=== PATIENT | male | born 1950 | race Caucasian/White ===

== ENCOUNTER 2016-08-19 11:16 | Inpatient (IN) | payer MEDICARE ==
[~2016-08-19] VITALS: Ht 170.2 cm; Wt 74.0 kg
[2016-08-19] VITALS (7 sets, daily range): BP systolic 119–144; BP diastolic 71–84; PULSE 72–109; RESP 16–21; O2SAT 93–98
--- NOTE | 2016-08-19 11:32 | ED.REPORT ---
HPI-Altered Mental Status Date of Service Aug 19, 2016 ED Provider: Reid Ayoub MD Pt is a 66 year old male with a hx of alcohol abuse presenting to the ED via EMS due to confusion and decreased level of consciousness. He is not oriented to place or date. He was found unconscious in his neighbor's yard and was acting strange the last couple days. His neighbor reports that he has been speaking gibberish for the past 3 days, and was acting things out in his front yard. He is normally totally oriented and neurologically intact at baseline. She has been unable to understand what he has been saying for the past 3 days, and has never seen his like this before. She reports that he drinks a lot of alcohol but she is not sure how much. The pt's 1 year ago and now lives alone. His neighbor is unsure what his medications are. Nursing Notes Stated Complaint: DECREASED RESPONSIVENESS Chief Complaint: General Complaint Nursing Notes Reviewed: Yes Allergies: Coded Allergies: No Known Allergies (Unverified , 08/19/16) General Time Seen by MD: 11:29 Chief Complaint Unresponsive Hx Obtained From: EMS Arrived By: Ambulance Sudden in Onset?: Yes Onset Occurred: Just prior to arrival Symptom Duration: Since onset Recent Healthcare: No recent doctor visit, No recent hospitalization Similar Sx Previous: No Past Medical History Past Medical History Alcohol abuse Smoking History Unknown if Ever Smoker Social History Alcohol Use: >5 per day Ambulatory Status Independent Review of Systems Unable to Obtain ROS Mental status Physical Exam Initial Vital Signs Vital Signs (First) Date Time Temp Pulse Resp B/P Pulse Ox O2 Delivery O2 Flow Rate FiO2 08/19/16 11:15 36.9 109 21 130/74 93 Room Air Initial VS: Reviewed ENT: Mucous membranes moist, Conjunctiva normal, No scleral icterus Abdomen / GI: Soft, Non-tender, No guarding, No rebound, No distention Extremities: Vascular intact, Neuro intact, No swelling, No tenderness Skin: Warm, Dry, No cyanosis Psychiatric: Mood/affect normal, Behavior normal, Normal thought content General/Constitutional: Awake Head / Eyes: Atraumatic, Normocephalic, PERRL, EOMI Respiratory / Chest: Breath sounds NL, Breath sounds = bilat, No respiratory distress, No rales, No rhonchi, No wheezing Cardiovascular: Heart rate NL, Regular rhythm, Heart sounds NL, Peripheral circulation NL Mental Status: Positive: Confused, Disoriented to place, Disoriented to time Skin: Warm, Dry Abrasions over bilateral knees with surrounding erythema Interpretation & Diagnostics Urine Dip: SP GRAVITY:1.020 pH:5 LEUKOCYTES:+ NITRITES:- PROTEIN:Trace GLUCOSE:- KETONES:+++ UROBILINOGEN:1 BILIRUBIN:+ BLOOD:50 HEMOGLOBIN:50 Lab Results Interpretation Result Diagram: 08/19/16 1130 08/19/16 1130 Test 08/19/16 11:30 08/19/16 11:52 08/19/16 12:45 08/19/16 13:05 White Blood Count 16.7th/mm3 (3.8-10.1) Red Blood Count 4.94mil/mm3 (4.40-5.80) Hemoglobin 16.1g/dL (13.8-17.2) Hematocrit 44.9% (41.0-50.0) Mean Corpuscular Volume 90.9fL (81-100) Mean Corpuscular Hemoglobin 32.6pg (27.0-35.0) Mean Corpuscular Hemoglobin Concent 35.9% (32.0-37.0) Red Cell Distribution Width 13.0% (12.3-15.4) Platelet Count 283bil/L (150-400) Neutrophils (%) (Auto) 78.7% (40-74) Lymphocytes (%) (Auto) 10.9% (14-46) Monocytes (%) (Auto) 9.8% (4-12) Eosinophils (%) (Auto) 0.2% (0-5) Basophils (%) (Auto) 0.2% (0-3) Sodium Level 136mEq/L (134-144) Potassium Level 3.6mEq/L (3.5-5.2) Chloride Level 92mEq/L (97-108) Carbon Dioxide Level 13mmol/L (18-29) Blood Urea Nitrogen 31mg/dL (8-27) Creatinine 1.37mg/dL (0.76-1.27) Estimat Glomerular Filtration Rate 55mL/min (>59) Glucose Level 139mg/dL (60-99) Calcium Level 9.6mg/dL (8.5-10.1) Total Bilirubin 1.3mg/dL (0.0-1.2) Aspartate Amino Transf (AST/SGOT) 29U/L (0-50) Alanine Aminotransferase (ALT/SGPT) 17U/L (0-44) Alkaline Phosphatase 82U/L (25-160) Total Protein 7.9g/dL (6.4-8.4) Albumin 4.1g/dL (3.4-5.0) Thyroid Stimulating Hormone (TSH) 2.180uIU/mL (0.450-4.500) Salicylates Level < 3.0ug/mL (30-250) Alcohols < 10mg/dL (0-10) Lactic Acid Level 1.6mmol/L (0.4-2.0) Urine Color Yellow (YELLOW) Urine Appearance Cloudy (CLEAR,HAZY) Urine pH 5.5 (5.0-8.0) Urine Specific [place] 1.025 (1.003-1.035) Urine Protein Tracemg/dL (NEG,TRACE) Urine Glucose (UA) Negativemg/dL (NEGATIVE) Urine Ketones 80mg/dL (NEGATIVE) Urine Occult Blood Moderate (NEGATIVE) Urine Nitrite Negative (NEGATIVE) Urine Bilirubin Negative (NEGATIVE) Urine Urobilinogen Normalmg/dL (NORMAL) Urine Leukocyte Esterase Small (NEGATIVE) Urine RBC 3-10/hpf (0-2) Urine WBC 6-10/hpf (0-5) Urine Epithelial Cells Few/hpf (NONE-MOD) Urine Crystals Amorphous urates (NONE Urine Bacteria Few/hpf (NONE-FEW) Urine Hyaline Casts None/lpf (NONE) Urine Granular Casts None seen (NONE SEEN) Urine Waxy Casts None seen (NONE SEEN) Urine Red Blood Cell Casts None seen (NONE SEEN) Urine White Blood Cell Casts None seen (NONE SEEN) Urine Mucus None seen (None Seen) Urine Trichomonas None seen (NONE SEEN) Urine Yeast None (NONE SEEN) Urinalysis Comment None Urine Culture Reflexed Indicated Ammonia 49ug/dL (18-53) ECG Interpretation Time: 12:38 Interpreted by: ED physician Normal ECG Interpretation: Normal rate (97), Normal sinus rhythm X-Ray Chest Interpretation Chest Xray Interpretation: IMPRESSION: No acute disease is seen. Dictated by: Giorgio Diaz M.D. on 08/19/2016 at 13:15 View: Portable, 1 view Interpretation / Wet Read by: Interpret - Radiologist CT Head Interpretation IMPRESSION: No acute intracranial abnormality. Atrophic changes present. Chronic left maxillary sinus disease is present. Dictated by: Giorgio Diaz M.D. on 08/19/2016 at 12:06 Study: Head CT no contrast Interpretation / Wet Read by: Interpret - Radiologist Procedures Lumbar Puncture Text / Dict Note: Attempted LP while patient was right lateral, then sat patient up and performed successful LP at L3-L4 Time: 14:19 Procedure Performed by: ED physician Consent / Setup / Site Prep: Consent from patient, Time-out performed, Hand hygiene observed, Stand sterile technique, Sterile drapes applied, Patient sitting up, Patient right lateral Local Anesthesia: Lidocaine 1% Procedural Sedation/Analgesia: Sedation: Other Inserted Needle at: L3 L4 Post-Procedure / Complications: Antibiotic oint applied, Dressing applied, No complications, Tolerated procedure well, Patient stable Re-Eval/Medical Decision Med Decision/Clinical Course Dclhifml-zlme-den male history of alcohol abuse presenting with altered mental status 2 days. Patient was observed by neighbors to be thing abnormally and speaking gibberish for the last 3 days. Ketamine due to agitation in route. Once ketamine wore off he was at times speaking in normal coherent sentences and at times believing he was ecchymosis and beating his chest. He was given Zyprexa and Ativan. Labs show elevated white blood cell count. Urine suggests infection. LP performed with CSF results pending. TSH is pending. Patient will be admitted for altered mental status. Possibly due to UTI. Cannot rule out Wernicke's banana bag given. The hospitalist. Rocephin given for possible urinary source. Re-Evaluation/Progress #1: Time of Eval: 12:10 Patient Status: Condition improved Re-Evaluation/Progress Note: Spoke to the pt's nika who found him and called 911. She gave more of the background. Re-Evaluation/Progress #2: Time of Eval: 12:37 Patient Status: Condition improved Re-Evaluation/Progress Note: HR: 103 BP: 136/88 O2: 96 When the nurse laid the pt back flat, he had some posturing and stopped breathing and turned red. Re-Evaluation/Progress #3: Time of Eval: 13:04 Re-Evaluation/Progress Note: Pt becoming agitated. Re-Evaluation/Progress #4: Time of Eval: 13:55 Patient Status: Condition improved Re-Evaluation/Progress Note: Pt sleeping comfortably. Re-Evaluation/Progress #5: Time of Eval: 14:18 Patient Status: Condition improved Re-Evaluation/Progress Note: Performed lumbar puncture. Pt tolerated procedure well. Consultation : Referral / Consult Name: Bertin Meléndez MD Consulted With: Hospitalist Call Returned at: 15:00 Correctional Officer Chief: Will see patient, Agrees with plan, Accepts admit Counseled Regarding: Diagnosis, Lab results, Need for admission Patient Discharge & Departure Impression: Primary Impression: Altered mental status Altered mental status type: delirium Qualified Code: R41.0 - Disorientation , unspecified Additional Impression: UTI (urinary tract infection) Urinary tract infection type: site unspecified Hematuria presence: without hematuria Qualified Code: N39.0 - Urinary tract infection, site not specified Disposition: ADMITTED TO HOSPITAL Discharge Condition All VS Reviewed: Yes Condition: Improved Referrals: [facility] [place]shauna Attestation Portions of this note were transcribed by Hilary Morales. I, Dr. Ayoub personally performed the history, physical exam and medical decision-making; I reviewed and confirmed the accuracy of the information in the transcribed note. Signed by: Jeannette Hinds, 08/19/2016 at 1500. copies to: [facility] Reid Ayoub MD Aug 19, 2016 11:31 HILARY MORALES Aug 19, 2016 12:15
[2016-08-19 11:43] LABS: BASOPHILS % (AUTO) 0.2 % (0-3); EOSINOPHILS % (AUTO) 0.2 % (0-5); MONOCYTES % (AUTO) 9.8 % (4-12); Mean Corpuscular Hemoglobin 32.6 pg (27.0-35.0); Mean Corpuscular Volume 90.9 fL (81-100); NEUTROPHILS % (AUTO) 78.7 % (40-74); Platelet Count 283 bil/L (150-400)
--- NOTE | 2016-08-19 12:11 | DRSVH ---
PROCEDURE: CT BRAIN WITHOUT CONTRAST ([id number]) INDICATIONS: altered mental status TECHNIQUE: Noncontrast 4.5 mm thick angled axial sections acquired from the foramen magnum to the vertex, with c oronal reformats. COMPARISON: [facility], CT, BRAIN W/O CONTRAST, 09/28/2008, 23:11. FINDINGS: Image quality: Excellent. CSF spaces: Basal cisterns are patent. No extra-axial fluid collections. The ventricles are symmet diallo in size and shape. Brain: No intracranial bleeds or masses. There is cerebral volume loss for age, with resultant vent ricular and sulcal prominence. There are periventricular and deep white matter chronic small vessel ischemic changes. There is intracranial internal carotid artery atherosclerosis. Skull and face: Calvarium and visualized facial bones appear intact, without suspicious lesions. Sinuses: There is chronic sinus disease involving the right maxillary sinus. There is diffuse thicken ing of the arredondo and minimal central aeration. IMPRESSION: No acute intracranial abnormality. Atrophic changes present. Chronic left maxillary sinus disease is present. Dictated by: Giorgio Diaz M.D. on 08/19/2016 at 12:06 Approved by: Giorgio Diaz M.D. on 08/19/2016 at 12:09
--- NOTE | 2016-08-19 13:18 | DRSVH ---
PROCEDURE: X-RAY CHEST ONE VIEW, PORTABLE ([id number]) INDICATIONS: altered mental status TECHNIQUE: One view of the chest was acquired. COMPARISON: None. FINDINGS: Surgical changes and devices: shelter monitor leads are seen over the chest. Lungs and pleura: No pleural effusions or pneumothorax. Lungs are clear. Mediastinum: Mediastinal contours appear normal. Heart size is normal. Bones and chest wall: No suspicious bony lesions. Overlying soft tissues appear unremarkable. IMPRESSION: No acute disease is seen. Dictated by: Giorgio Diaz M.D. on 08/19/2016 at 13:15 Approved by: Giogrio Diaz M.D. on 08/19/2016 at 13:16
--- NOTE | 2016-08-19 13:42 | NUR ---
Admit nurse: Pt found with altered LOC in neighbor's yard and brought in by sugar refinery supervisor. Pt is verbal, but does not answer questions appropriately or reliably. Pt has scratches/abrasions to abdomen and both knees. Unable to obtain any info from pt.
[2016-08-19 14:13] LABS: APPEARANCE,URINE CLOUDY (CLEAR,HAZY); COLOR,URINE YELLOW (YELLOW); OCCULT BLOOD,URINE MODERATE (NEGATIVE); PH,URINE 5.5 (5.0-8.0); UROBILINOGEN,URINE NORMAL (NORMAL)
[2016-08-19] MEDS ORDERED: cefTRIAXone Inj 2,000 MG in Dextrose 5% Minibag Plus 50 ML IV ONE (14:40)
[2016-08-19] MEDS ORDERED: Multivitamin w/Vit K Inj 10 ML, Thiamine Inj 100 MG, Folic Acid Inj 1 MG, Magnesium Sul... IV ONE ×5 (15:04)
[2016-08-19] MEDS ORDERED: Ondansetron 2 mg/mL 2 mL Inj IVPUSH PRN ×2 (15:10→15:30)
[2016-08-19] MEDS ORDERED: Alum-Mag Hydrox-Simeth 30 mL Suspension PO PRN ×2 (15:10→15:30)
[2016-08-19] MEDS ORDERED: Polyethylene Glycol (PEG) 17 Gm Powder PO PRN (15:30)
[2016-08-19] MEDS ORDERED: Thiamine Inj 100 MG, Folic Acid Inj 1 MG, Magnesium Sulfate 50% Inj 2 GM, Multivitamins... IV ONE ×5 (15:30)
[2016-08-19] MEDS: Multivit-Miner-Folic Acid-Iron Tablet PO SCH (15:30)
[2016-08-19 16:14] LABS: APPEARANCE,CSF CLEAR (CLEAR); COLOR,CSF COLORLESS (COLORLESS); WHITE BLOOD CELL,CSF 0 /mm3 (0-5)
--- NOTE | 2016-08-19 16:37 | NUR ---
Admit Pt admitted to [facility] room 1011 at 1610. Pt heavily sedated and unable to follow commands or answer questions. Pt made comfortable. VSS. Sitter at window. [place] alarm on. No s/s of pain or distress. IV antibiotics running. Addendum: 08/19/16 at 1828 by DES RASMUSSEN RN Pt not alert and oriented enough to finish admission.
[2016-08-19] MEDS: D5 0.45% NaCl + KCl 20 mEq/L 1,000 ML IV SCH (17:28)
[2016-08-19 21:11] LABS: Phosphorus 4.1 mg/dL (2.5-4.9)
--- NOTE | 2016-08-19 21:15 | PCM.HPMED ---
Subjective Date of Service Aug 19, 2016 Primary Provider: Admitting Physician: Bertin Meléndez MD Primary Care Physician: Leon Owen MD Attending Physician: Bertin Meléndez MD Chief Complaint: Patient was found unresponsive in his neighbor's yard History of Present Illness: This patient is unresponsive the history was obtained from the chart and according to Dr. Reid Ayoub the "Pt is a 66 year old male with a hx of alcohol abuse presenting to the ED via EMS due to confusion and decreased level of consciousness. He is not oriented to place or date. He was found unconscious in his neighbor's yard and was acting strange the last couple days. His neighbor reports that he has been speaking gibberish for the past 3 days, and was acting things out in his front yard. He is normally totally oriented and neurologically intact at baseline. She has been unable to understand what he has been saying for the past 3 days, and has never seen his like this before. She reports that he drinks a lot of alcohol but she is not sure how much. The pt 's 1 year ago and now lives alone. His neighbor is unsure what his medications are.". The patient portably began banging his chest in the emergency room and was very confused disoriented to place to time. Patient was given ketamine due to agitation in route to the hospital by EMS workers. Once ketamine wore off he was at times speaking and normal coherent sediment sentences at times believing he was Zach and beating his chest. He was given Zyprexa and Ativan. His white blood cell count was found to be elevated his urine analysis suggested that he had a urinary tract infection. A lumbar puncture was performed and the patient was given IV Rocephin a banana bag was ordered and the patient was admitted to the hospitalist service. For the Zyprexa and the Ativan he was extremely sleepy and unresponsive. Review of Systems: Patient is unresponsive and unable to give a review of systems. Allergies Coded Allergies: No Known Allergies (Unverified , 08/19/16) Home Medications There is no list of home medications and patient is unable to give a history of his home medications. [facility] Patient has a history of alcoholism there is no other medical past medical history available Surgical History Past surgical history is unavailable, as patient is unresponsive. Family History Family history is unavailable, as patient is unresponsive. Social History Hx Alcohol Use: Yes Smoking Status: Unknown if Ever Smoker Living Arrangement: Alone Exam Vital Signs Vital Sign - Last Date Time Temp Pulse Resp B/P Pulse Ox O2 Delivery O2 Flow Rate FiO2 08/19/16 19:43 36.2 72 16 144/84 98 Room Air Exam General: Patient was found unresponsive after Zyprexa and Ativan were given. Patient does moan and response to painful stimuli. Skin: There is scattered erythematous rash on chest arms and knees which appear to be secondary to abrasions (patient apparently was found naked in his neighbor 's yard) HEENT: Head is atraumatic and normocephalic. Eyes: Pupils appear equally round and reactive to light. Extraocular muscles are unable to be tested. Sclera are white, anicteric. Subconjunctival mucosa is pink. Ears and nose are unremarkable. Oropharynx: There is no mucosal lesions, there is no thrush, there is no pharyngitis. However, mucosa is very dry. Neck: Is supple, there are no nodes, or masses or tenderness. Chest: Is clear to auscultation and percussion. There are no rales, rhonchi, wheezes or rubs. However, there are coarse breath sounds Heart: Rate, rhythm is regular. There is no appreciable murmur, rub or gallop. Abdomen: Good bowel sounds are present. Abdomen is soft, nontender, no organomegaly or masses were appreciated. Extremities: Are symmetrical and well perfused. There is no edema, there is no cellulitis, no rash. Neurologic: The patient is unresponsive after Zyprexa and Ativan. He does respond to painful stimuli and moans and groans periodically. Psychiatric: Patient is unresponsive after Zyprexa and Ativan. Prior to being given Zyprexa and Ativan the patient was being his chest and claiming to be Zach. Genital: Deferred Rectal: Deferred Lab and Diagnostics Result Diagram: 08/19/16 1130 08/19/16 1130 Assessment & Plan This patient is unresponsive the history was obtained from the chart and according to Dr. Reid Ayoub the "Pt is a 66 year old male with a hx of alcohol abuse presenting to the ED via EMS due to confusion and decreased level of consciousness. He is not oriented to place or date. He was found unconscious in his neighbor's yard and was acting strange the last couple days. His neighbor reports that he has been speaking gibberish for the past 3 days, and was acting things out in his front yard. He is normally totally oriented and neurologically intact at baseline. She has been unable to understand what he has been saying for the past 3 days, and has never seen his like this before. She reports that he drinks a lot of alcohol but she is not sure how much. The pt 's 1 year ago and now lives alone. His neighbor is unsure what his medications are.". The patient portably began banging his chest in the emergency room and was very confused disoriented to place to time. Patient was given ketamine due to agitation in route to the hospital by EMS workers. Once ketamine wore off he was at times speaking and normal coherent sediment sentences at times believing he was Zach and beating his chest. He was given Zyprexa and Ativan. His white blood cell count was found to be elevated his urine analysis suggested that he had a urinary tract infection. A lumbar puncture was performed and the patient was given IV Rocephin a banana bag was ordered and the patient was admitted to the hospitalist service. For the Zyprexa and the Ativan he was extremely sleepy and unresponsive. # Encephalopathy, presence of admission. Active - Possible Wernicke's encephalopathy. Will give thiamine IV and and multivitamins in a banana bag - Possible meningoencephalitis. However, CSF was obtained by lumbar puncture and is negative - Possible sepsis with encephalopathy related to sepsis. Etiology could be urinary tract infection although level of encephalopathy would be unusual given this type of infection. We will continue Rocephin 2 g IV every 24 hours and check urine culture. - Possible toxic metabolic encephalopathy, drug effect etc. Urine drug screen was not performed check urine drug screen when urine is available. - Possible acute psychotic event - Possible delirium tremens # Alcoholism, patient's alcohol level was 0% admission - Patient routinely drinks on a regular basis - Amount of alcohol consumption is not known by patient's neighbors this patient lives alone. # Rash, presence time of admission. Active - Etiology uncertain, but as patient was found naked in his neighbor's yard, it appears to be due to abrasions and some contact dermatitis - We will provide Benadryl and some mild topical cream. Disposition: As the patient will be here more than 2 midnights, for the evaluation and treatment of the above conditions, the patient will be made in inpatient. Pain Evaluation: Adequate Pain Control GI Prophylaxis: Proton Pump Inhibitor VTE Prophylaxis: Sub-Q Enoxaparin Resuscitation Status: CPR: Attempt Resuscitation Bertin Meléndez MD Aug 19, 2016 21:15
--- NOTE | 2016-08-19 23:14 | NUR ---
Confusion Patient very confused. Pounding on chest and yelling or crying and then suddenly stopping and falling back asleep. Patient's IV is patent. Vitals stable.
[2016-08-20] VITALS (10 sets, daily range): BP systolic 121–180; BP diastolic 76–93; PULSE 67–93; RESP 16–20; O2SAT 96–99
[2016-08-20] MEDS: D5 0.45% NaCl + KCl 20 mEq/L 1,000 ML IV SCH ×2 (01:28→13:36)
[2016-08-20 06:31] LABS: BASOPHILS % (AUTO) 0.2 % (0-3); EOSINOPHILS % (AUTO) 1.3 % (0-5); MONOCYTES % (AUTO) 12.3 % (4-12); Mean Corpuscular Volume 90.6 fL (81-100); NEUTROPHILS % (AUTO) 61.2 % (40-74); Platelet Count 247 bil/L (150-400)
[2016-08-20 07:22] LABS: Magnesium 2.4 mg/dL (1.6-2.6); Phosphorus 2.6 mg/dL (2.5-4.9)
[2016-08-20] MEDS: Pantoprazole 40 mg ER24 Tablet PO SCH (07:30)
[2016-08-20] MEDS: Multivit-Miner-Folic Acid-Iron Tablet PO SCH (08:30)
[2016-08-20] MEDS ORDERED: SODIUM CHLORIDE 0.9% IV PRN (10:50)
[2016-08-20] MEDS ORDERED: LABETALOL IV PRN (10:50)
[2016-08-20] MEDS ORDERED: Labetalol 5 mg/mL 4 mL Inj IVPUSH PRN (11:10)
--- NOTE | 2016-08-20 15:12 | NUR ---
MENTATION/ACTIVITY 0830 Patient is sedated. Non-responsive to voice. Patient is responsive to tactile stimuli. CIWA score-9. SBP-180; HR-90's. Dr. Meléndez made aware. 0930 Echo is unable to complete test due to the patient being fidgety and unable to follow commands. Unable to complete swallow/PT evaluation due to patients mentation. 1130 Patient's friend visited him. Patient had a brief conversation with his friend but has flight of ideas. CIWA score-10. Valium administered as ordered for CIWA score. ECHO will attempt to repeat the test. 1330 Patient continues to be sedated. He was able to answer questions but does not answer it appropriately. ECHO was completed. Via FELDT scale patients pain level is 0/10. 1530 Patient is responsive to tactile stimuli. CIWA score-4. Sponge bath administered. Patient was noted to be able to turn and reposition independently in bed.
--- NOTE | 2016-08-20 15:16 | DRSVH ---
[facility] [address] [place] [address] Echocardiogram Report Name: BOB BECKMAN te: 08/20/2016 Height: 67 in Hospital Exam Location: [facility] Weight: 154 lb Gender: Male BSA: 1.8 m2 : 1950 Age: 66 yrs BP: 121/76 mmHg Reason For Study: ENCEPHALOPATHY Ordering Physician: Angel Casanova Performed By: Jeremias Caicedo Referring Physician: Dr. Leon Owen Interpretation Summary 1. Normal left ventricular size, wall thickness and systolic function with an estimated EF of 65 to 70% 2. Normal right ventricular size and systolic function 3. No evidence for valvular pathology Procedure: A two-dimensional transthoracic echocardiogram with color flow and Doppler was performed. The study quality was technically adequate. The patient was fully supine and unable to cooperate well during the exam. There is no prior echocardiogram noted for this patient. The patient was in normal sinus rhythm during the exam. Left Ventricle: The left ventricle is normal in size. There is normal left ventricular wall thickness. The ejection fraction is estimated to be 70-75%. There are no focal wall motion abnormalities. Right Ventricle: The right ventricle is normal in size and function. Atria: Both atria are normal in size. No color doppler evidence for an ASD. Mitral Valve: The mitral valve is normal in structure and function. There is no mitral regurgitation noted. Aortic Valve: The aortic valve is trileaflet. The aortic valve opens well. No aortic regurgitation is present. Tricuspid Valve: The tricuspid valve is normal in structure and function. No tricuspid regurgitation. Pulmonary artery pressures cannot be estimated because of the lack of a measurable TR jet velocity. Pulmonic Valve: The pulmonic valve is not well seen, but is grossly normal. There is no pulmonic valvular regurgitation. Great Vessels: The aortic root is normal size. The dimensions of the ascending aorta are normal. The pulmonary artery is normal size. The IVC has a measurement of 18 mm. The patient was unable to perform the sniff test. Pericardium/ Pleura There is no pericardial effusion. There is no pleural effusion. MMode/2D Measurements & Calculations LVIDd: 4.5 cm RA long axis Ao root diam LVIDs: 3.1 cm LA A2 area: 15.3 cm FS: 30.1 % LA A4 area: 14.1 cm RA area Aortic Jxn IVSd: 0.85 cm LA length (vol): 4.9 cm LVPWd: 0.94 cm LA vol: 37.3 ml : 12.8 cm asc Aorta LA vol index RA vol: 31.0 mlDiam: 3.4 cm RA : 17.2 mm2 IVC diam: 1.8 cm LV renner. diameter/BSA LV sys. diameter/BSA (cm/m^2): 2.5 (cm/m^2): 1.7 Doppler Measurements & Calculations Ao V2 max MV E max eugene MV E/A: 0.90 PA V2 max : 141.7 cm/sec : 77.3 cm/sec Med Peak E' Eugene : 102.5 cm/sec Ao max PG MV A max eugene PA mean PG : 8.0 mmHg : 85.8 cm/sec E/E' med: 9.1 Ao mean PG PA Accel Time : 4.9 mmHg : 0.09 sec MV dec time Ao V2 mean PA V2 mean : 0.19 sec : 105.5 cm/sec : 76.0 cm/sec Ao V2 VTI: 29.5 cm PA pr(Accel) : 39.2 mmHg Reading Physician:03:15 PM
--- NOTE | 2016-08-20 15:59 | NUR ---
Social Work: Multi-Disciplinary Rounds Per MD, pt arrived to hospital and has been stating "I am Zach." stated that assessment is not recommended at this time due to CIWA protocol. requested SW see pt for CD-ETOH. SW requested order. SW will assess pt pending CIWA. Pt is not medically stable and is likely to remain hospitalized for 2-3 more days. JOSE Valverde
[2016-08-20] MEDS: cefTRIAXone Inj 2,000 MG in Dextrose 5% Minibag Plus 50 ML IV SCH (16:39)
--- NOTE | 2016-08-20 22:35 | PCM.PNMED ---
Subjective Date of Service Aug 20, 2016 Subjective The patient was curled in the position and when I asked the sitter about his condition the patient responded by repeating "me me me me" over and over again and then started repeating "xu" over and over again no sensible response could be obtained from the patient. He appeared to be comfortable and in no apparent distress. He had no specific complaints. Exam Vital Signs Vital Sign - Last Date Time Temp Pulse Resp B/P Pulse Ox O2 Delivery O2 Flow Rate FiO2 08/20/16 20:00 79 08/20/16 19:48 36.4 16 147/80 97 Room Air Intake and Output 08/19/16 08/19/16 08/20/16 Cumulative From/Thru 15:00 23:00 07:00 08/19/16 11:27 - 08/20/16 06:46 Intake Total 1000 ml 1291 ml 2291 ml Balance 1000 ml 1291 ml 2291 ml Intake Oral 0 ml 0 ml IV Total 1000 ml 1291 ml 2291 ml # Voids 2 2 # Bowel Movements 0 0 Exam General: Patient is lying in position his right side. He appears quite comfortable and in no apparent distress. He begins talking by repeating the same word over and over again and changes them infrequently. He appears to be comfortable and in no distress and has no complaints. Skin: There is scattered erythematous rash on chest arms and knees which appear to be secondary to abrasions (patient apparently was found naked in his neighbor 's yard). These appeared to be stable. HEENT: Head is atraumatic and normocephalic. Eyes: Pupils appear equally round and reactive to light. Extraocular muscles are unable to be tested. Sclera are white, anicteric. Subconjunctival mucosa is pink. Ears and nose are unremarkable. Oropharynx: There is no mucosal lesions, there is no thrush, there is no pharyngitis. However, mucosa is very dry. Neck: Is supple, there are no nodes, or masses or tenderness. Chest: Is clear to auscultation and percussion. There are no rales, rhonchi, wheezes or rubs. However, there are coarse breath sounds Heart: Rate, rhythm is regular. There is no appreciable murmur, rub or gallop. Abdomen: Good bowel sounds are present. Abdomen is soft, nontender, no organomegaly or masses were appreciated. Extremities: Are symmetrical and well perfused. There is no edema, there is no cellulitis. The rash as described above is stable. Neurologic: The patient is more responsive today. However his speech is nonsensical. Psychiatric: Patient appears to be suffering from some psychosis. Genital: Deferred Rectal: Deferred Lab and Diagnostics Result Diagram: 08/20/1660108/20/16601 Microbiology Name: KARUNA BOB RAMEY Age/Sex: 66/M Attend Dr: Bertin Meléndez Acct: [id number] Unit: [id number] Status: ADM IN Location[place] [facility] [place]-1 Re08/19/16 Disch: Specimen: [id number] Collected: 08/19/16 Status: RES Req#: [id number] Received: 08/19/16 Source: RANDOM Sp Desc : ISABEL Villafuerte Dr: Reid Ayoub MD Ordered: URINE CULT Procedure Result Verified Site Microbiology GERMÁN CULT URINE Preliminary 08/20/16-856 PRELIMINARY ID GRAM NEG ISA, PROBABLE E COLI ID AND SENS TO FOLLOW COLONY COUNT/QUANTITY Less than 10,000 CFU/ml Blood cultures are pending and negative to date. CSF was negative. Cardiac Echo Impressions Echocardiogram Report Name: BOB BECKMAN CStudy Da te: 08/20/2016 Height: 67 in Hospital Exam Location: [facility] Weight: 154 lb Gender: Male BSA: 1.8 m2 : 1950 Age: 66 yrs BP: 121/76 mmHg Reason For Study: ENCEPHALOPATHY Ordering Physician: Angel Casanova Performed By: Jeremias Caicedo Referring Physician: Dr. Leon Owen Interpretation Summary 1. Normal left ventricular size, wall thickness and systolic function with an estimated EF of 65 to 70% 2. Normal right ventricular size and systolic function 3. No evidence for valvular pathology Assessment & Plan This patient is unresponsive the history was obtained from the chart and according to Dr. Reid Ayoub the "Pt is a 66 year old male with a hx of alcohol abuse presenting to the ED via EMS due to confusion and decreased level of consciousness. He is not oriented to place or date. He was found unconscious in his neighbor's yard and was acting strange the last couple days. His neighbor reports that he has been speaking gibberish for the past 3 days, and was acting things out in his front yard. He is normally totally oriented and neurologically intact at baseline. She has been unable to understand what he has been saying for the past 3 days, and has never seen his like this before. She reports that he drinks a lot of alcohol but she is not sure how much. The pt 's 1 year ago and now lives alone. His neighbor is unsure what his medications are.". The patient portably began banging his chest in the emergency room and was very confused disoriented to place to time. Patient was given ketamine due to agitation in route to the hospital by EMS workers. Once ketamine wore off he was at times speaking and normal coherent sediment sentences at times believing he was Zach and beating his chest. He was given Zyprexa and Ativan. His white blood cell count was found to be elevated his urine analysis suggested that he had a urinary tract infection. A lumbar puncture was performed and the patient was given IV Rocephin a banana bag was ordered and the patient was admitted to the hospitalist service. For the Zyprexa and the Ativan he was extremely sleepy and unresponsive. # Encephalopathy, presence of admission. Active - Possible Wernicke's encephalopathy. Will give thiamine IV and and multivitamins in a banana bag - Possible meningoencephalitis. However, CSF was obtained by lumbar puncture and is negative - Possible sepsis with encephalopathy related to sepsis. Etiology could be urinary tract infection although level of encephalopathy would be unusual given this type of infection. We will continue Rocephin 2 g IV every 24 hours and check final urine culture results which are pending. It appears patient has an infection with Escherichia coli. - Possible toxic metabolic encephalopathy, drug effect etc. Urine drug screen was not performed check urine drug screen when urine is available. - Possible acute psychotic event. Will try treating the patient with IV Zyprexa as speech therapy is not recommended anything by mouth at this time. Will continue maintenance IV fluids with D5 half-normal with 20 mg of potassium chloride. - Possible delirium tremens. We will continue CIWA protocol. # Alcoholism, patient's alcohol level was 0% admission - Patient routinely drinks on a regular basis - Amount of alcohol consumption is not known by patient's neighbors this patient lives alone. - We will continue CIWA protocol # Rash, presence time of admission. Active - Etiology uncertain, but as patient was found naked in his neighbor's yard, it appears to be due to abrasions and some contact dermatitis - We will provide Benadryl and some mild topical cream. Disposition: Patient is likely to be here several more days for evaluation and treatment of the above condition. Would consider psychiatric consultation and/ or neurology consultation or both. Pain Evaluation: Adequate Pain Control GI Prophylaxis: Proton Pump Inhibitor VTE Prophylaxis: Sub-Q Enoxaparin VTE Mechanical Devices: Intermittant Pneumatic CD Resuscitation Status: CPR: Attempt Resuscitation Bertin Meléndez MD Aug 20, 2016 22:35
[2016-08-20] MEDS: Thiamine Inj 100 MG in Dextrose 5% 50 ML IV SCH (23:35)
[2016-08-21] VITALS (8 sets, daily range): BP systolic 148–175; BP diastolic 80–91; PULSE 52–84; RESP 16–22; O2SAT 96–99
[2016-08-21] MEDS: D5 0.45% NaCl + KCl 20 mEq/L 1,000 ML IV SCH ×3 (01:55→17:26)
--- NOTE | 2016-08-21 03:35 | NUR ---
Resting Patient has been resting quietly most of night. Patient was given Zyprexa earlier in shift which seemed to relax him when he was becoming anxious.Patient still very confused, calling out random numbers and rhyming phrases. Vitals stable. 1:1 sitter at bedside. Patient can move quickly out of bed when he has a mind to.
[2016-08-21 05:57] LABS: BASOPHILS % (AUTO) 0.3 % (0-3); EOSINOPHILS % (AUTO) 3.6 % (0-5); MONOCYTES % (AUTO) 15.5 % (4-12); Mean Corpuscular Hemoglobin 32.2 pg (27.0-35.0); Mean Corpuscular Volume 91.5 fL (81-100); NEUTROPHILS % (AUTO) 51.8 % (40-74); Platelet Count 244 bil/L (150-400)
[2016-08-21 06:16] LABS: Magnesium 1.9 mg/dL (1.6-2.6); Phosphorus 2.5 mg/dL (2.5-4.9)
[2016-08-21] MEDS: Pantoprazole 40 mg ER24 Tablet PO SCH (07:30)
[2016-08-21] MEDS: Multivit-Miner-Folic Acid-Iron Tablet PO SCH (08:30)
[2016-08-21] MEDS: Thiamine Inj 100 MG in Dextrose 5% 50 ML IV SCH (11:30)
[2016-08-21] MEDS: diphenhydrAMINE-Zinc 2%-0.1% 30 Gm Cream TOPICAL PRN (11:31)
--- NOTE | 2016-08-21 14:56 | NUR ---
spiritual care: pt request caring visit. pt seemed to understand all of caring conversational visit. did not open eyes but responded to basic introduction. listed a series of words at one point, including calling out to "Giorgio" with urgency. 2 times he made grimace as if in pain but did not specify what hurt or in what manner. will follow as needed.
--- NOTE | 2016-08-21 15:12 | PCM.PNMED ---
Subjective Date of Service Aug 21, 2016 Subjective Patient was given Zyprexa overnight which appears to have helped with the anxiety. Patient has a sitter in room. Patient is speaking however nonsensical. Was not on restraints last night. CIWA scores of 10 and 9 overnight. Exam Vital Signs Vital Sign - Last Date Time Temp Pulse Resp B/P Pulse Ox O2 Delivery O2 Flow Rate FiO2 08/21/16 13:39 153/84 08/21/16 12:05 36.3 83 16 99 Room Air Intake and Output 08/20/16 08/20/16 08/21/16 Cumulative From/Thru 15:00 23:00 07:00 08/19/16 11:27 - 08/21/16 05:38 Intake Total 526 ml 1091 ml 0 ml 3908 ml Output Total 556 ml 556 ml Balance 526 ml 535 ml 0 ml 3352 ml Intake Oral 0 ml 0 ml 0 ml IV Total 526 ml 1091 ml 3908 ml Output Urine Total 556 ml 556 ml # Voids 3 5 # Bowel Movements 0 0 0 Exam Gen: NAD, patient is confused, not answering questions. Unclear baseline. Does not appear to be in distress. HEENT: NCAT, PERRLA, EOMI, MMM, sclera anicteric. Neck: Soft, supple, symmetrical, no thyromegaly/JVD/LAD. Resp: CTAB, no R/R/W. CV: RRR, nl S1/S2, no M/R/G, Abd: Soft, (+) BS, no guarding/rebound/organomegaly. Ext: +PP, -edema Skin: There is scattered erythematous rash on chest arms and knees which appear to be secondary to abrasions (patient apparently was found naked in his neighbor's yard). These appeared to be stable Neuro/Psych: Patient appears to be suffering from some psych IVs and Medications Medications Reviewed: Medications were reviewed in detail Lab and Diagnostics Result Diagram: 08/21/1652908/21/16529 Microbiology Name: BOB BECKMAN JR Age/Sex: 66/M Attend Dr: Bertin Meléndez Acct: [id number] Unit: [id number] Status: ADM IN Location: [place] [address]-1 Re08/19/16 Disch: Specimen: [id number] Collected: 08/19/16 Status: RES Req#: [id number] Received: 08/19/16 Source: RANDOM Sp Desc : ISABEL Villafuerte Dr: Reid Ayoub MD Ordered: URINE CULT Procedure Result Verified Site Microbiology GERMÁN CULT URINE Preliminary 08/20/16 PRELIMINARY ID GRAM NEG ISA, PROBABLE E COLI ID AND SENS TO FOLLOW COLONY COUNT/QUANTITY Less than 10,000 CFU/ml Blood cultures are pending and negative to date. CSF was negative. Cardiac Echo Impressions Echocardiogram Report Name: BOB BECKMAN CStudy Da te: 08/20/2016 Height: 67 in Hospital Exam Location: [facility] Weight: 154 lb Gender: Male BSA: 1.8 m2 : 1950 Age: 66 yrs BP: 121/76 mmHg Reason For Study: ENCEPHALOPATHY Ordering Physician: Angel Casanova Performed By: Jeremias Caicedo Referring Physician: Dr. Leon Owen Interpretation Summary 1. Normal left ventricular size, wall thickness and systolic function with an estimated EF of 65 to 70% 2. Normal right ventricular size and systolic function 3. No evidence for valvular pathology Assessment & Plan This patient is unresponsive the history was obtained from the chart and according to Dr. Reid Ayoub the "Pt is a 66 year old male with a hx of alcohol abuse presenting to the ED via EMS due to confusion and decreased level of consciousness. He is not oriented to place or date. He was found unconscious in his neighbor's yard and was acting strange the last couple days. His neighbor reports that he has been speaking gibberish for the past 3 days, and was acting things out in his front yard. He is normally totally oriented and neurologically intact at baseline. She has been unable to understand what he has been saying for the past 3 days, and has never seen his like this before. She reports that he drinks a lot of alcohol but she is not sure how much. The pt 's 1 year ago and now lives alone. His neighbor is unsure what his medications are.". The patient portably began banging his chest in the emergency room and was very confused disoriented to place to time. Patient was given ketamine due to agitation in route to the hospital by EMS workers. Once ketamine wore off he was at times speaking and normal coherent sediment sentences at times believing he was Zach and beating his chest. He was given Zyprexa and Ativan. His white blood cell count was found to be elevated his urine analysis suggested that he had a urinary tract infection. A lumbar puncture was performed and the patient was given IV Rocephin a banana bag was ordered and the patient was admitted to the hospitalist service. For the Zyprexa and the Ativan he was extremely sleepy and unresponsive. # Encephalopathy, presence of admission. Active - Possible Wernicke's encephalopathy. Will give thiamine IV and and multivitamins in a banana bag - Possible meningoencephalitis. However, CSF was obtained by lumbar puncture and is negative - Possible sepsis with encephalopathy related to sepsis. Etiology could be urinary tract infection although level of encephalopathy would be unusual given this type of infection. Urine cultures positive for Escherichia coli less than 10,000. - We will continue Rocephin 2 g IV every 24 hours and check final urine and blood cultures. - Possible toxic metabolic encephalopathy, drug effect etc. Urine drug screen negative except alcohol less than 10. - Possible acute psychotic event. Will try treating the patient with IV Zyprexa as speech therapy is not recommended anything by mouth at this time. - Will continue maintenance IV fluids with D5 half-normal with 20 mg of potassium chloride. - Possible delirium tremens. We will continue CIWA protocol. CIWA scores of 10 and 9 overnight. # Alcoholism, patient's alcohol level was 0% admission - Patient routinely drinks on a regular basis - Amount of alcohol consumption is not known by patient's neighbors this patient lives alone. - We will continue CIWA protocol, CIWA scores of 10 and 9 overnight. # Rash, presence time of admission. Active - Etiology uncertain, but as patient was found naked in his neighbor's yard, it appears to be due to abrasions and some contact dermatitis - We will provide Benadryl and some mild topical cream. Disposition: Patient is likely to be here several more days for evaluation and treatment of the above condition. Would consider psychiatric consultation and/ or neurology consultation or both. Pain Evaluation: Adequate Pain Control GI Prophylaxis: Proton Pump Inhibitor VTE Prophylaxis: Sub-Q Enoxaparin VTE Mechanical Devices: Intermittant Pneumatic CD Resuscitation Status: CPR: Attempt Resuscitation Amos Bowman MD Aug 21, 2016 15:12
[2016-08-21] MEDS: cefTRIAXone Inj 2,000 MG in Dextrose 5% Minibag Plus 50 ML IV SCH (17:29)
--- NOTE | 2016-08-21 19:25 | NUR ---
MENTATION/ACTIVITY Patient is more awake today. Able to state his name. Able to follow simple commands. One command at a time. NPO. Via FELDT scale patients pain level is 0/10. No emesis noted. Patient is on tele. Per telesales agent patient is on sinus rhythm; HR-60's. Bed bath and oral care rendered. CIWA score-6. Sitter is at the bedside.
[2016-08-22] VITALS (9 sets, daily range): BP systolic 142–183; BP diastolic 70–114; PULSE 64–117; RESP 16–22; O2SAT 94–99
[2016-08-22] MEDS: D5 0.45% NaCl + KCl 20 mEq/L 1,000 ML IV SCH ×3 (04:12→23:28)
--- NOTE | 2016-08-22 05:42 | NUR ---
Activity Pt remains on bedrest with 1:1 sitter. NPO due to incomplete speech/swallow eval. OOB with PT only, unable to follow commands. CIWA scores of 6 and 8 over shift. Pt receiving IM Zyprexa and has Valium available for CIWA > 10. Addendum: 08/22/16 at 0628 by MIKI CACERES RN pt follows simple commands. will roll in bed when asked to assist with brief changes and lifts his arms to make IV accessible. however he doesn't open his eyes or respond to questions appropriately. speaks mostly in nonsensical sentences.
[2016-08-22 07:40] LABS: BASOPHILS % (AUTO) 0.4 % (0-3); EOSINOPHILS % (AUTO) 3.6 % (0-5); MONOCYTES % (AUTO) 15.6 % (4-12); Mean Corpuscular Hemoglobin 32.2 pg (27.0-35.0); Mean Corpuscular Volume 89.2 fL (81-100); NEUTROPHILS % (AUTO) 48.4 % (40-74); Platelet Count 252 bil/L (150-400)
[2016-08-22] MEDS: Multivit-Miner-Folic Acid-Iron Tablet PO SCH (08:30)
[2016-08-22] MEDS: Thiamine Inj 100 MG in Dextrose 5% 50 ML IV SCH (08:36)
[2016-08-22] MEDS: diphenhydrAMINE-Zinc 2%-0.1% 30 Gm Cream TOPICAL PRN (10:34)
--- NOTE | 2016-08-22 11:43 | NUR ---
MENTATION/ACTIVITY Patient continues to be confused. Lethargic. Dr. Bowman was at the bedside this morning. Patient was noted to be able to open his eyes and identify how many fingers Dr. Bowman was showing him. However, unable to answer further questions. Able to follow simple commands but unable to do follow through commands. Very sensitive to tactile stimuli. Patient would either cry at times with slight touch. Continues to be NPO. MD made aware RE: Patient being NPO X 3 days and ? nutritional intake. Patient most likely will do better with TPN rather than with a NGT due to his tendency to pull on his lines. Patient is to get up with PT only. He is able to reposition independently in bed. He is incontinent. Sponge be bath was rendered by the ELEVATOR RUNNER. 1:1 sitter to monitor patient.
--- NOTE | 2016-08-22 12:28 | PCM.PNMED ---
Subjective Date of Service Aug 22, 2016 Subjective Patient is sleepy and lethargic. Has been speaking on and off per nurse but is always incoherent or repeats words. Patient did receive the IM Zyprexa both last night and this morning before exam. Patient is not agitated at this time. Exam Vital Signs Vital Sign - Last Date Time Temp Pulse Resp B/P Pulse Ox O2 Delivery O2 Flow Rate FiO2 08/22/16 12:14 37.2 76 20 183/91 94 Room Air Intake and Output 08/21/16 08/21/16 08/22/16 Cumulative From/Thru 15:00 23:00 07:00 08/19/16 11:27 - 08/22/16 06:13 Intake Total 764 ml 985 ml 5657 ml Output Total 556 ml Balance 764 ml 985 ml 5101 ml Intake Oral 0 ml 0 ml 0 ml IV Total 764 ml 985 ml 5657 ml Output Urine Total 556 ml # Voids 5 3 13 # Bowel Movements 0 0 0 Exam Gen: Patient is sleepy but does open eyes to verbal stimuli., patient is confused, not answering questions. Unclear baseline. Does not appear to be in distress. HEENT: NCAT, PERRLA, EOMI, MMM, sclera anicteric. Neck: Soft, supple, symmetrical, no thyromegaly/JVD/LAD. Resp: CTAB, no R/R/W. CV: RRR, nl S1/S2, no M/R/G, Abd: Soft, (+) BS, no guarding/rebound/organomegaly. Ext: +PP, -edema Skin: There is scattered erythematous rash on chest arms and knees which appear to be secondary to abrasions (patient apparently was found naked in his neighbor's yard). These appeared to be stable Neuro/Psych: No responses. Patient can tell me number of fingers I am holding up consistently. Alert and oriented 0. Does spontaneously move all limbs. Can follow basic commands. Pain to touch on lower extremities seems out of proportion. IVs and Medications Medications Reviewed: Medications were reviewed in detail Lab and Diagnostics Result Diagram: 08/22/16 0515 08/22/16 0515 Microbiology Name: BOB BECKMAN JR Karen Age/Sex: 66/M Attend Dr: Bertin Meléndez Acct: [id number] Unit: [id number] Status: ADM IN Location: [facility] [place] 1011-1 Re08/19/16 Disch: Specimen: [id number] Collected: 08/19/16-1244 Status: RES Req#: [id number] Received: 08/19/16 Source: RANDOM Sp Desc : ISABEL Villafuerte Dr: Reid Ayoub MD Ordered: URINE CULT Procedure Result Verified Site Microbiology GERMÁN CULT URINE Preliminary 08/20/16 PRELIMINARY ID GRAM NEG ISA, PROBABLE E COLI ID AND SENS TO FOLLOW COLONY COUNT/QUANTITY Less than 10,000 CFU/ml Blood cultures are pending and negative to date. CSF was negative. Cardiac Echo Impressions Echocardiogram Report Name: BOB BECKMAN CStudmacey Da te: 08/20/2016 Height: 67 in Hospital Exam Location: [facility] Weight: 154 lb Gender: Male BSA: 1.8 m2 : 1950 Age: 66 yrs BP: 121/76 mmHg Reason For Study: ENCEPHALOPATHY Ordering Physician: Angel Casanova Performed By: Jeremias Caicedo Referring Physician: Dr. Leon Owen Interpretation Summary 1. Normal left ventricular size, wall thickness and systolic function with an estimated EF of 65 to 70% 2. Normal right ventricular size and systolic function 3. No evidence for valvular pathology Assessment & Plan This patient is unresponsive the history was obtained from the chart and according to Dr. Reid Ayoub the "Pt is a 66 year old male with a hx of alcohol abuse presenting to the ED via EMS due to confusion and decreased level of consciousness. He is not oriented to place or date. He was found unconscious in his neighbor's yard and was acting strange the last couple days. His neighbor reports that he has been speaking gibberish for the past 3 days, and was acting things out in his front yard. He is normally totally oriented and neurologically intact at baseline. She has been unable to understand what he has been saying for the past 3 days, and has never seen his like this before. She reports that he drinks a lot of alcohol but she is not sure how much. The pt 's 1 year ago and now lives alone. His neighbor is unsure what his medications are.". The patient portably began banging his chest in the emergency room and was very confused disoriented to place to time. Patient was given ketamine due to agitation in route to the hospital by EMS workers. Once ketamine wore off he was at times speaking and normal coherent sediment sentences at times believing he was Zach and beating his chest. He was given Zyprexa and Ativan which made him very sleepy. # Encephalopathy, present on admission. Active. Unclear if patient has underlying dementia likely given atrophic atrophy seen on CT of the head. Delirium secondary to UTI also probable. - Possible Wernicke's encephalopathy. Will give thiamine IV and and multivitamins in a banana bag - CSF was obtained by lumbar puncture and is negative making meningeal encephalitis less likely - We will continue Rocephin 2 g IV every 24 hours, follow-up blood and urine cultures. - Possible toxic metabolic encephalopathy, drug effect etc. Urine drug screen negative except alcohol less than 10. Avoid polypharmacy. - Possible acute psychotic event. Will try treating the patient with IV Zyprexa which was changed from standing to when necessary. Try lower dose of 2.5 mg initially as patient was very lethargic after receiving each time. -Patient is nothing by mouth for 3 days due to dysphagia. Continue with IV fluids and consider TPN if no improvement in 1-2 days. 08/22- Discussed case briefly with on-call neurologist. Will get MRI of the brain and EEG. If either are abnormal or patient fails to improve will call back for a neurology consult. #UTI- positive for Escherichia coli less than 10,000. Started on ceftriaxone on 08/20. WBC 16.7->4.7 today. Afebrile. Will transition from IV to by mouth antibiotics closer to discharge, likely seven-day course. # Alcoholism, patient's alcohol level was 0% admission - Patient routinely drinks on a regular basis - Amount of alcohol consumption is not known by patient's neighbors this patient lives alone. - We will continue CIWA protocol, has had scores < 10. # Rash, presence time of admission. Active - Etiology uncertain, but as patient was found naked in his neighbor's yard, it appears to be due to abrasions and some contact dermatitis - We will provide Benadryl and some mild topical cream. Disposition: Patient is likely to be here several more days for evaluation and treatment of the above condition. Pain Evaluation: Adequate Pain Control GI Prophylaxis: Proton Pump Inhibitor VTE Prophylaxis: Sub-Q Enoxaparin VTE Mechanical Devices: Intermittant Pneumatic CD Resuscitation Status: CPR: Attempt Resuscitation Amos Bowman MD Aug 22, 2016 12:28 VTE Prophylaxis: Sub-Q Enoxaparin VTE Mechanical Devices: Intermittant Pneumatic CD Resuscitation Status: CPR: Attempt Resuscitation Amos Bowman MD Aug 22, 2016 12:28
--- NOTE | 2016-08-22 15:20 | NUR ---
spiritual care: follow up log yard manager updated on pt's care/notes and available for support as needed.
--- NOTE | 2016-08-22 15:26 | NUR ---
NUTRITION ASSESSMENT: ASSESS: Pt is a 66yo M admitted for AMS. Pt has history of alcoholism and is currently on CIWA protocol. Pt continues to be confused and due to this he has not been able to pass a swallow evaluation. He has been NPO x3 days. Due to history of alcoholism, pt also likely had poor PO intake prior to admit as well. PMHX: alcoholism LABS: Reviewed. Bun 6, data reviewer .68, Alb 3.3 MEDS: Reviewed. Thiamine, folic acid GI: 0 BM x3 days SKIN: no major issues noted, rash CURRENT WTS: 70kg, BMI 24.2kg/m2 DIET: NPOx3 EST. NEEDS: Kcals: 1750-2100kcal/day (25-30kcal/kg) Pro: 70-85g/day (1.0-1.2g/kg) Fluids: 1750-2100ml/day (25-30ml/kg) NUTRITION DIAGNOSIS: 1.) Inadequate oral intake related to decreased ability to consume sufficient energy as evidenced by current NPO status NUTRITION INTERVENTION: 1.) Recommend advance diet when medically appropriate per ST 2.) If pt continues to be NPO, recommend nutrition support be considered. MONITOR / EVAL: NPO, ST, nutrition support?, wt, gi, labs, POC. Will continue to monitor per high nutrition risk guidelines
[2016-08-22] MEDS: cefTRIAXone Inj 2,000 MG in Dextrose 5% Minibag Plus 50 ML IV SCH (15:59)
--- NOTE | 2016-08-22 16:10 | DRSVH ---
PROCEDURE: MRI BRAIN WITHOUT CONTRAST ([id number]) INDICATIONS: AMS TECHNIQUE: Non-contrast axial T1 spin echo, axial T2 fast spin echo, sagittal and axial FLAIR, coronal T2 fast s pin echo, axial gradient echo, axial diffusion and ADC through the brain. COMPARISON: None. FINDINGS: Image quality: Excellent. CSF spaces: Ventricles appear symmetric in size and shape. Basal cisterns are patent. No extra-axi al fluid collections. Brain: No intracranial bleeds or mass effects. There is cerebral volume loss for age. There are pe riventricular and deep white matter chronic small vessel ischemic changes. Brainstem appears normal. Diffusion-weighted images show no acute ischemic insults. No chronic ischemic insults. Normal int ravascular flow voids are present. Skull and face: Calvarial bone marrow is normal in signal. Orbits are normal. Sinuses: Severe right maxillary sinus mucosal thickening. Minimal left maxillary sinus mucosal thicke chilo. Mastoids clear. IMPRESSION: 1. Volume loss and small vessel ischemic disease. 2. No acute process. No recent infarct. 3. Maxillary sinus disease. Dictated by: Janett Rosado M.D. on 08/22/2016 at 16:07 Approved by: Janett Rosado M.D. on 08/22/2016 at 16:08
--- NOTE | 2016-08-22 17:08 | PROCED ---
[address] [address] EEG PATIENT: BOB BECKMAN : 1950 MR#: [id number] ADMIT: 08/19/2016 JOB ID: [id number] DATE OF SERVICE: 08/22/2016 REQUESTING PHYSICIAN: Dr. Fuentes CLINICAL HISTORY: The patient is a 66-year-old gentleman found unconscious and confused, acting strangely approximately four days ago. No history of alcohol abuse. Possible dementia. No epilepsy history. Current medications Ativan. TECHNICAL DESCRIPTION: This digital EEG was recorded using 25 scalp and ear electrodes and two EKG electrodes. It was reviewed on bipolar and referential montages formatted in the 10/20 [employer] Electrode Placement System. DESCRIPTION: While awake and with eyes closed, there are 8 hertz rhythmic and symmetric waveforms seen over the occipital head region which attenuates with eye opening. This is an extremely low amplitude recording. Intermittent slowing is noted throughout the recording. No epileptiform abnormalities are seen. No evidence of electrophysiologic seizures seen. The patient quickly enters sleep. The appropriate sleep architecture is noted in both hemispheres. Activation: Photic stimulation does not reveal any photic driving and no photoparoxysmal discharges. Hyperventilation was not performed. EKG rhythm strip: Regular rhythm. IMPRESSION: Abnormal EEG due to slowing. No evidence of ongoing subclinical seizures or epileptiform abnormalities. Clinical correlation advised. [facility]
--- NOTE | 2016-08-22 20:28 | NUR ---
pain/activity assumed care of patient at 1515. patient off floor at that time to MRI. returned to floor from MRI. denies pain. patient turned and repositioned q2 hours. 1:1 sitter present. continuous pulse ox in place and sats high90's. patient alert and oriented to person. confused to time and place. answers questions when asked. report given to oncoming rn at 1900.
[2016-08-23] VITALS (9 sets, daily range): BP systolic 146–174; BP diastolic 71–105; PULSE 64–87; RESP 16–18; O2SAT 93–97
[2016-08-23] MEDS: D5 0.45% NaCl + KCl 20 mEq/L 1,000 ML IV SCH (02:31)
[2016-08-23 06:36] LABS: BASOPHILS % (AUTO) 0.6 % (0-3); EOSINOPHILS % (AUTO) 3.6 % (0-5); MONOCYTES % (AUTO) 12.8 % (4-12); Mean Corpuscular Hemoglobin 32.3 pg (27.0-35.0); Mean Corpuscular Volume 90.9 fL (81-100); NEUTROPHILS % (AUTO) 54.1 % (40-74); Platelet Count 246 bil/L (150-400)
[2016-08-23] MEDS: Lactated Ringer's 1,000 ML IV SCH ×2 (08:22→19:05)
[2016-08-23] MEDS: Thiamine Inj 100 MG in Dextrose 5% 50 ML IV SCH (09:50)
--- NOTE | 2016-08-23 11:23 | PCM.PNMED ---
Subjective Date of Service Aug 23, 2016 Subjective Patient does not have any significant agitation overnight. Still sleepy. Still has sitter. Not requiring any medications for agitation or restraints. He is speaking and following commands although still confused per staff. Exam Vital Signs Vital Sign - Last Date Time Temp Pulse Resp B/P Pulse Ox O2 Delivery O2 Flow Rate FiO2 08/23/16 10:44 68 08/23/16 08:12 36.7 18 148/72 93 Room Air 08/23/16 06:44 3.00 Intake and Output 08/22/16 08/22/16 08/23/16 Cumulative From/Thru 15:00 23:00 07:00 08/19/16 11:27 - 08/23/16 06:45 Intake Total 1252 ml 0 ml 6909 ml Output Total 556 ml Balance 1252 ml 0 ml 6353 ml Intake Oral 0 ml 0 ml 0 ml IV Total 1252 ml 6909 ml Output Urine Total 556 ml # Voids 3 3 19 # Bowel Movements 0 0 Exam Gen: Patient is sleepy, Alert and oriented 1, still inappropriate responses to questions. Does follow more commands reliably today. Unclear baseline. Does not appear to be in distress. HEENT: NCAT, PERRLA, EOMI, MMM, sclera anicteric. Neck: Soft, supple, symmetrical, no thyromegaly/JVD/LAD. Resp: CTAB, no R/R/W. CV: RRR, nl S1/S2, no M/R/G, Abd: Soft, (+) BS, no guarding/rebound/organomegaly. Ext: +PP, -edema Skin: There is scattered erythematous rash on chest arms and knees which appear to be secondary to abrasions (patient apparently was found naked in his neighbor's yard). These appeared to be stable Neuro/Psych: No responses. Patient can tell me number of fingers I am holding up consistently. Alert and oriented 1 to his name. Aware that he is in a hospital today. Does spontaneously move all limbs. Can follow basic commands. ms out of proportion. IVs and Medications Medications Reviewed: Medications were reviewed in detail Lab and Diagnostics Result Diagram: 08/23/16 0510 08/23/16 0510 Microbiology Name: KARUNA BOB RAMEY Age/Sex: 66/M Attend Dr: Bertin Meléndez Acct: [id number] Unit: [id number] Status: AD[place] [facility] [place]08/19/16 Disch: Specimen: [id number] Collected: 08/19/16 Status: RES Req#: [id number] Received: 08/19/16 Source: RANDOM Sp Desc : ISABEL Villafuerte Dr: Reid Ayoub MD Ordered: URINE CULT Procedure Result Verified Site Microbiology GERMÁN CULT URINE Preliminary 08/20/16 PRELIMINARY ID GRAM NEG ISA, PROBABLE E COLI ID AND SENS TO FOLLOW COLONY COUNT/QUANTITY Less than 10,000 CFU/ml Blood cultures are pending and negative to date. CSF was negative. X-Rays, CTs and MRIs PROCEDURE: MRI BRAIN WITHOUT CONTRAST ([id number]) INDICATIONS: AMS TECHNIQUE: Non-contrast axial T1 spin echo, axial T2 fast spin echo, sagittal and axial FLAIR, coronal T2 fast spin echo, axial gradient echo, axial diffusion and ADC through the brain. COMPARISON: None. FINDINGS: Image quality: Excellent. CSF spaces: Ventricles appear symmetric in size and shape. Basal cisterns are patent. No extra-axial fluid collections. Brain: No intracranial bleeds or mass effects. There is cerebral volume loss for age. There are periventricular and deep white matter chronic small vessel ischemic changes. Brainstem appears normal. Diffusion-weighted images show no acute ischemic insults. No chronic ischemic insults. Normal intravascular flow voids are present. Skull and face: Calvarial bone marrow is normal in signal. Orbits are normal. Sinuses: Severe right maxillary sinus mucosal thickening. Minimal left maxillary sinus mucosal thickening. Mastoids clear. 1. Volume loss and small vessel ischemic disease. 2. No acute process. No recent infarct. 3. Maxillary sinus disease. EEG- 08/22/2016 Abnormal EEG due to slowing. No evidence of ongoing subclinical seizures or epileptiform abnormalities. Clinical correlation advised. PROCEDURE: CT BRAIN WITHOUT CONTRAST ([id number]) INDICATIONS: altered mental status TECHNIQUE: Noncontrast 4.5 mm thick angled axial sections acquired from the foramen magnum to the vertex, with coronal reformats. COMPARISON: [facility], CT, BRAIN W/O CONTRAST, 09/28/2008, 23:11. FINDINGS: Image quality: Excellent. CSF spaces: Basal cisterns are patent. No extra-axial fluid collections. The ventricles are symmetric in size and shape. Brain: No intracranial bleeds or masses. There is cerebral volume loss for age , with resultant ventricular and sulcal prominence. There are periventricular and deep white matter chronic small vessel ischemic changes. There is intracranial internal carotid artery atherosclerosis. Skull and face: Calvarium and visualized facial bones appear intact, without suspicious lesions. Sinuses: There is chronic sinus disease involving the right maxillary sinus. There is diffuse thickening of the arredondo and minimal central aeration. IMPRESSION: No acute intracranial abnormality. Atrophic changes present. Chronic left maxillary sinus disease is present. Cardiac Echo Impressions Echocardiogram Report Name: BOB BECKMAN CStudy Da te: 08/20/2016 Height: 67 in Hospital Exam Location: [facility] Weight: 154 lb Gender: Male BSA: 1.8 m2 : 1950 Age: 66 yrs BP: 121/76 mmHg Reason For Study: ENCEPHALOPATHY Ordering Physician: Angel Casanova Performed By: Jeremias Caicedo Referring Physician: Dr. Leon Owen Interpretation Summary 1. Normal left ventricular size, wall thickness and systolic function with an estimated EF of 65 to 70% 2. Normal right ventricular size and systolic function 3. No evidence for valvular pathology Assessment & Plan Pt is a 66 year old male with a hx of alcohol abuse presenting to the ED via EMS due to confusion and decreased level of consciousness. He is not oriented to place or date. He was found unconscious in his neighbor's yard and was acting strange the last couple days. His neighbor reports that he has been speaking gibberish for the past 3 days, and was acting things out in his front yard. He is normally totally oriented and neurologically intact at baseline per neighbour. She has been unable to understand what he has been saying for the past 3 days, and has never seen his like this before. She reports that he drinks a lot of alcohol but she is not sure how much. The pt's 1 year ago and now lives alone. His neighbor is unsure what his medications are. The patient began banging his chest in the emergency room and was very confused, disoriented to place to time. Patient was given ketamine due to agitation in route to the hospital by EMS workers. Once ketamine wore off he was at times speaking and normal coherent for some sentences at times believing he was Zach and beating his chest. He was given Zyprexa and Ativan which made him very sleepy. # Encephalopathy, present on admission. Active. Unclear if patient has underlying dementia likely given atrophic atrophy seen on CT of the head. Delirium secondary to UTI also probable. Did not meet sepsis criteria. - Possible Wernicke's encephalopathy. Will give thiamine IV and and multivitamins in a banana bag - CSF was obtained by lumbar puncture and is negative making meningeal encephalitis less likely - We will continue Rocephin 2 g IV every 24 hours, follow-up blood and urine cultures. - Possible toxic metabolic encephalopathy, drug effect etc. Urine drug screen negative except alcohol less than 10. Avoid polypharmacy. - Possible acute psychotic event. Will try treating the patient with IV Zyprexa which was changed from standing to when necessary. Try lower dose of 2.5 mg initially as patient was very lethargic after receiving each time. -Patient is nothing by mouth for 3 days due to dysphagia. Continue with IV fluids and consider TPN if no improvement in 1-2 days. 08/22- Discussed case briefly with on-call neurologist. Rec MRI of the brain and EEG. -EEG showed slowing which is a nonspecific finding and could be related to dementia or medications. No epileptiform activity. - MRI of the brain did show some volume loss with no acute process. -Have consulted psych [place] is patient likely has undiagnosed dementia. Appreciate consult and follow-up recommendations. #PEPE- resolved. Present on admission. No known history of CKD. Was likely prerenal secondary to dehydration and poor by mouth intake. Has improved with IV fluids. #UTI- positive for Escherichia coli less than 10,000. Started on ceftriaxone on 08/20. WBC 16.7->4.7 today. Afebrile. Will transition from IV to by mouth antibiotics closer to discharge, likely seven-day course. # Alcohol abuse- patient's alcohol level was 0% admission. Unclear if patient is withdrawing from alcohol. - Patient routinely drinks on a regular basis, continue with IV thiamine. - Amount of alcohol consumption is not known by patient's neighbors. patient lives alone. - We will continue CIWA protocol, has had scores < 10. CIWA score for this exam # Rash, presence time of admission. Active - Etiology uncertain, but as patient was found naked in his neighbor's yard, it appears to be due to abrasions and some contact dermatitis - We will provide Benadryl and some mild topical cream. Disposition: Patient is likely to be here several more days for evaluation and treatment of the above condition. Pain Evaluation: Adequate Pain Control GI Prophylaxis: Proton Pump Inhibitor VTE Prophylaxis: Sub-Q Enoxaparin VTE Mechanical Devices: Intermittant Pneumatic CD Resuscitation Status: CPR: Attempt Resuscitation Amos Bowman MD Aug 23, 2016 11:22
--- NOTE | 2016-08-23 11:38 | NUR ---
NUTRITION FOLLOW-UP: ASSESS: Pt is a 66 YO male admitted with AMS, ETOH intoxication. Pt has history of alcoholism, particularly since the of his approx. a year ago, and is currently on CIWA protocol with scores < 10. Pt continues to be confused, requiring a sitter. He has been NPO x 4 D per Speech Therapy Order; today his diet was advanced to pureed texture with thin liquids. There is no weight history available; however, pt. is likely malnourished due to alcoholism. PMHX: Alcoholism. LABS: Reviewed. BUN 4, Cr 0.90, Glu 161. MEDS: Reviewed. Thiamine, folic acid, benadryl. GI: No BM since admit x 4 D. SKIN: No pressure injuries noted; however, pt. has a rash which is being treated with benadryl. WTS: 70 kg, BMI 24.2kg/m2. Admit weight: 70 kg. DIET: Pureed, thin liquids. PO intake not yet recorded. EST. NEEDS: Kcals: 1750-2100kcal/day (25-30kcal/kg) Pro: 70-85g/day (1.0-1.2g/kg) Fluids: 1750-2100ml/day (25-30ml/kg) NUTRITION DIAGNOSIS: 1) Inadequate oral intake related to decreased ability to consume sufficient energy as evidenced by current NPO status - IMPROVED WITH DIET ADVANCE. NUTRITION INTERVENTION: 1) Will add Ensure at breakfast, Magic Cup at lunch, Gelatein at dinner. 2) If pt does not do well with his diet advance, recommend nutrition support be considered. MONITOR / EVAL: Diet advance / tolerance, PO intake, wt, gi, labs, POC. Will continue to monitor per high nutrition risk guidelines.
--- NOTE | 2016-08-23 14:25 | NUR ---
Social Work: Attempted Assessment / Attempted CD assessment Data: Pt is a 66 y/o male admitted for AMS, pt's PCP is Dr Owen, pt's insurance is Medicare. EMR reviewed. Pt's CIWA currently 6-8. ANGLE SHEAR SET UP OPERATOR met with pt at bedside to complete assessments. Pt not oriented at this time. When asked what his birthday is, pt states "It's [birth year], which is today. That's Anaya. That's me. That's now." Pt asked ANGLE SHEAR SET UP OPERATOR to look up and look down and that is the answer. ANGLE SHEAR SET UP OPERATOR asked pt where he is at and he stated "home". ANGLE SHEAR SET UP OPERATOR called pt's S/O listed as NOK, no answer, requested a call back for initial assessment. Psych has been ordered. ANGLE SHEAR SET UP OPERATOR will continue to follow. Assessment: Pt currently not A&O. Plan: Completed initial assessment with S/O or other family member, complete CD assessment once A&O. Follow up post Psych evaluation. JOSE Bright
[2016-08-23] MEDS: cefTRIAXone Inj 2,000 MG in Dextrose 5% Minibag Plus 50 ML IV SCH (17:25)
[2016-08-23] MEDS: Multivit-Miner-Folic Acid-Iron Tablet PO SCH (17:27)
--- NOTE | 2016-08-23 17:50 | NUR ---
Activity/LOC Pt up to BS chair today during shift for meals; more alert/arousable but calm, cooperative with care. C/O pain R leg with getting up early this morning to the BS chair and could not express a number for pain or exactly where the pain was located. Speaking more today and making conversation at times during care, not making sense, but a bit more clear from previous pt reports. BP elevated today diastolically when working with PT, but back down when resting. Will continue to monitor with frequent rounds.
[2016-08-24] VITALS (8 sets, daily range): BP systolic 146–173; BP diastolic 81–98; PULSE 63–100; RESP 16; O2SAT 94–98
--- NOTE | 2016-08-24 02:49 | NUR ---
Mentation Patient agitated throughout shift, demanding paper documents of his will, convinced that he will not make it through night and that he was on his " bed." With some effort he was redirected. Later this evening he began to scream for the aide and explained that he had AIDs, again with much effort he was redirected. A third time he became agitated and began to argue with sitter about music discs and it was at this point that this RN decided that the PRN for agitation needs to be administered. Will monitor closely, care continues.
[2016-08-24] MEDS: Lactated Ringer's 1,000 ML IV SCH (04:00)
[2016-08-24 05:36] LABS: Mean Corpuscular Hemoglobin 32.8 pg (27.0-35.0); Mean Corpuscular Volume 92 fL (81-100); NEUTROPHILS % (AUTO) 48 % (40-74); Platelet Count 263 bil/L (150-400)
[2016-08-24 05:37] LABS: BASOPHILS % (AUTO) 0 % (0-3); EOSINOPHILS % (AUTO) 4 % (0-5); MONOCYTES % (AUTO) 13 % (4-12)
[2016-08-24] MEDS: Multivit-Miner-Folic Acid-Iron Tablet PO SCH (08:59)
[2016-08-24] MEDS: Thiamine Inj 100 MG in Dextrose 5% 50 ML IV SCH (10:40)
--- NOTE | 2016-08-24 11:54 | NUR ---
Social Work: Attempted Assessment/Multi-Disciplinary Rounds/Continued Discharge Planning D: EMR reviewed. Pt is on day 5 of hospitalization. Per rounds, pt is still not oriented and is stating that today is 05/30 and it is Anaya. Pt to have psych consult today. SW will follow psych recommendations to further determine discharge plan. SW placed T/C to pt's SO (listed as NOK) to attempt to conduct assessment and determine pt's baseline. SW left voicemail. SW placed T/C to pt's PCP office to determine pt's baseline/any additional NOK to determine pt's baseline/conduct assessment - phone number has been disconnected. SW will continue to find pt's NOK or more information about pt. A: TBD-pt who is confused at baseline P: SW to follow-up with pt's contacts to determine pt's baseline/conduct assessment. SW will continue to follow. JOSE Valverde Addendum: 08/24/16 at 1615 by PHILIPPE TUCKER Attempted to call number listed for Dr. Leon Owen - not in service. JOSE Valverde
--- NOTE | 2016-08-24 11:56 | NUR ---
Mentation CASHIER AND WAITER/WAITRESS requested RN to pt room. Pt had been grimacing and crying, he then had an outburst of coughing, and then became unresponsive. RN was able to arouse pt, when asked his name he yelled "it's Casey", then appeared to fall back asleep. Telemetry was called and it was noted that pt's HR had increased from 60's to low 100s within the previous 5 minutes, BP 164/98, RR 16, SAO2 95%. notified. Care continues
--- NOTE | 2016-08-24 12:33 | NUR ---
Patient seen by CWON RN per PU Prevention Protocol. No open areas or pressure ulcers found. Patient mildly agitated at time of assessment, declined rolling for posterior visualization; patient's RN stated that skin is warm, clean, without reddened areas. Heels pink and warm, no bogginess.
--- NOTE | 2016-08-24 13:33 | PCM.PNMED ---
Subjective Date of Service Aug 24, 2016 Subjective Patient is more alert and answering questions today. Sitting up in chair. Was able to feed himself this morning for breakfast. He did have episodes of agitation lasted 2-3 minutes and afterwards nurses said that he was more quiet and less talkative. Had multiple elevated blood pressure readings over the last 2 days and increased heart rate with activity. Exam Vital Signs Vital Sign - Last Date Time Temp Pulse Resp B/P Pulse Ox O2 Delivery O2 Flow Rate FiO2 08/24/16 11:42 37.0 100 16 164/98 95 Room Air 08/23/16 06:44 3.00 Intake and Output 08/23/16 08/23/16 08/24/16 Cumulative From/Thru 15:00 23:00 07:00 08/19/16 11:27 - 08/24/16 06:45 Intake Total 1164 ml 2065 ml 1625 ml 72893 ml Output Total 300 ml 250 ml 1106 ml Balance 1164 ml 1765 ml 1375 ml 53940 ml Intake Oral 1009 ml 600 ml 1609 ml IV Total 1164 ml 1056 ml 1025 ml 00747 ml Output Urine Total 300 ml 250 ml 1106 ml # Voids 1 3 23 # Bowel Movements 0 0 0 Exam Gen: Alert and oriented 1-2 today. Much more alert. Sitting up in chair without assistance. HEENT: NCAT, PERRLA, EOMI, MMM, sclera anicteric. Neck: Soft, supple, symmetrical, no thyromegaly/JVD/LAD. Resp: CTAB, no R/R/W. CV: RRR, nl S1/S2, no M/R/G, Abd: Soft, (+) BS, no guarding/rebound/organomegaly. Ext: +PP, -edema Skin: Some small excoriations, healing Neuro/Psych: Patient is alert and oriented 1-2 today much more alert and cooperative answer questions. Still tends gentle thinking and inappropriate responses with some repetitive words used still inappropriate responses to questions. Repeat same phrase multiple times. Follow basic commands IVs and Medications Medications Reviewed: Medications were reviewed in detail Lab and Diagnostics Result Diagram: 08/24/16 0500 08/24/16 0500 Microbiology Name: BOB BECKMAN JR Karen Age/Sex: 66/M Attend Dr: Bertin Meléndez Acct: [id number] Unit: [id number] Status: ADM IN Location: [facility] [place] 1011-1 Re08/19/16 Disch: Specimen: [id number] Collected: 08/19/16-1244 Status: RES Req#: [id number] Received: 08/19/16 Source: RANDOM Sp Desc : ISABEL Villafuerte Dr: Reid Ayoub MD Ordered: URINE CULT Procedure Result Verified Site Microbiology GERMÁN CULT URINE Preliminary 08/20/16 PRELIMINARY ID GRAM NEG ISA, PROBABLE E COLI ID AND SENS TO FOLLOW COLONY COUNT/QUANTITY Less than 10,000 CFU/ml Blood cultures are pending and negative to date. CSF was negative. X-Rays, CTs and MRIs PROCEDURE: MRI BRAIN WITHOUT CONTRAST ([id number]) INDICATIONS: AMS TECHNIQUE: Non-contrast axial T1 spin echo, axial T2 fast spin echo, sagittal and axial FLAIR, coronal T2 fast spin echo, axial gradient echo, axial diffusion and ADC through the brain. COMPARISON: None. FINDINGS: Image quality: Excellent. CSF spaces: Ventricles appear symmetric in size and shape. Basal cisterns are patent. No extra-axial fluid collections. Brain: No intracranial bleeds or mass effects. There is cerebral volume loss for age. There are periventricular and deep white matter chronic small vessel ischemic changes. Brainstem appears normal. Diffusion-weighted images show no acute ischemic insults. No chronic ischemic insults. Normal intravascular flow voids are present. Skull and face: Calvarial bone marrow is normal in signal. Orbits are normal. Sinuses: Severe right maxillary sinus mucosal thickening. Minimal left maxillary sinus mucosal thickening. Mastoids clear. 1. Volume loss and small vessel ischemic disease. 2. No acute process. No recent infarct. 3. Maxillary sinus disease. EEG- 08/22/2016 Abnormal EEG due to slowing. No evidence of ongoing subclinical seizures or epileptiform abnormalities. Clinical correlation advised. PROCEDURE: CT BRAIN WITHOUT CONTRAST ([id number]) INDICATIONS: altered mental status TECHNIQUE: Noncontrast 4.5 mm thick angled axial sections acquired from the foramen magnum to the vertex, with coronal reformats. COMPARISON: [facility], CT, BRAIN W/O CONTRAST, 09/28/2008, 23:11. FINDINGS: Image quality: Excellent. CSF spaces: Basal cisterns are patent. No extra-axial fluid collections. The ventricles are symmetric in size and shape. Brain: No intracranial bleeds or masses. There is cerebral volume loss for age , with resultant ventricular and sulcal prominence. There are periventricular and deep white matter chronic small vessel ischemic changes. There is intracranial internal carotid artery atherosclerosis. Skull and face: Calvarium and visualized facial bones appear intact, without suspicious lesions. Sinuses: There is chronic sinus disease involving the right maxillary sinus. There is diffuse thickening of the arredondo and minimal central aeration. IMPRESSION: No acute intracranial abnormality. Atrophic changes present. Chronic left maxillary sinus disease is present. Cardiac Echo Impressions Echocardiogram Report Name: BOB BECKMAN CStudy Da te: 08/20/2016 Height: 67 in Hospital Exam Location: [facility] Weight: 154 lb Gender: Male BSA: 1.8 m2 : 1950 Age: 66 yrs BP: 121/76 mmHg Reason For Study: ENCEPHALOPATHY Ordering Physician: Angle Casanova Performed By: Jeremias Caicedo Referring Physician: Dr. Leon Owen Interpretation Summary 1. Normal left ventricular size, wall thickness and systolic function with an estimated EF of 65 to 70% 2. Normal right ventricular size and systolic function 3. No evidence for valvular pathology Assessment & Plan Pt is a 66 year old male with a hx of alcohol abuse presenting to the ED via EMS due to confusion and decreased level of consciousness. He is not oriented to place or date. He was found unconscious in his neighbor's yard and was acting strange the last couple days. His neighbor reports that he has been speaking gibberish for the past 3 days, and was acting things out in his front yard. He is normally totally oriented and neurologically intact at baseline per neighbour. She has been unable to understand what he has been saying for the past 3 days, and has never seen his like this before. She reports that he drinks a lot of alcohol but she is not sure how much. The pt's 1 year ago and now lives alone. His neighbor is unsure what his medications are. The patient began banging his chest in the emergency room and was very confused, disoriented to place to time. Patient was given ketamine due to agitation in route to the hospital by EMS workers. Once ketamine wore off he was at times speaking and normal coherent for some sentences at times believing he was Zach and beating his chest. He was given Zyprexa and Ativan which made him very sleepy. # Encephalopathy, present on admission. Active. Unclear if patient has underlying dementia likely given atrophic atrophy seen on CT of the head. Delirium secondary to UTI also probable. Did not meet sepsis criteria. - Possible Wernicke's encephalopathy. Will give thiamine IV and and multivitamins in a banana bag - CSF was obtained by lumbar puncture and is negative making meningeal encephalitis less likely - We will continue Rocephin 2 g IV every 24 hours, follow-up blood and urine cultures. - Possible toxic metabolic encephalopathy, drug effect etc. Urine drug screen negative except alcohol less than 10. Avoid polypharmacy. - Possible acute psychotic event. Will try treating the patient with IV Zyprexa which was changed from standing to when necessary. Try lower dose of 2.5 mg initially as patient was very lethargic after receiving each time. -Patient is nothing by mouth for 3 days due to dysphagia. Continue with IV fluids and consider TPN if no improvement in 1-2 days. 08/22- Discussed case briefly with on-call neurologist. Rec MRI of the brain and EEG. -EEG showed slowing which is a nonspecific finding and could be related to dementia or medications. No epileptiform activity. - MRI of the brain did show some volume loss with no acute process. -Have consulted psych as patient likely has undiagnosed dementia. Appreciate consult and will follow-up recommendations. #PEPE- resolved. Present on admission. No known history of CKD. Was likely prerenal secondary to dehydration and poor by mouth intake. Has improved with IV fluids. #UTI- positive for Escherichia coli, POA, active. less than 10,000. Started on ceftriaxone on 08/20. WBC 16.7->4.7 today. Afebrile. Will transition from IV to by mouth antibiotics closer to discharge, likely seven-day course. # Alcohol abuse- patient's alcohol level was 0% admission. Unclear if patient is withdrawing from alcohol. - Patient routinely drinks on a regular basis, continue with IV thiamine. - Amount of alcohol consumption is not known by patient's neighbors. patient lives alone. - We will continue CIWA protocol, has had scores < 10. CIWA score for this exam #Elevated BP, POA, active. unknown if hx of HTN. Had multiple elevated blood pressure readings over the last 2 days and increased heart rate with activity. We will start low-dose metoprolol, 0.5 twice a day. # Rash, presence time of admission. Active - Etiology uncertain, but as patient was found naked in his neighbor's yard, it appears to be due to abrasions and some contact dermatitis - We will provide Benadryl and some mild topical cream. Disposition: Social work is assisting to coordinate with patient's family as he will need supervision to take his own medications and take care of himself. Otherwise we will look into assisted living facilities. GI Prophylaxis: Proton Pump Inhibitor VTE Prophylaxis: Sub-Q Enoxaparin VTE Mechanical Devices: Intermittant Pneumatic CD Resuscitation Status: CPR: Attempt Resuscitation Amos Bowman MD Aug 24, 2016 13:33
--- NOTE | 2016-08-24 15:51 | CONS ---
[address] [address] CONSULTATION REPORT PATIENT: BOB BECKMAN : 1950 MR#: [id number] ADMIT: 08/19/2016 JOB ID: [id number] DATE OF SERVICE: IDENTIFICATION: The patient is a 66-year-old white male. He is currently living alone. 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. REASON FOR ADMISSION: Client to the emergency department after found unconscious and naked in his neighbor's yard. EMS was called. REASON FOR CONSULT: I was asked to consult on the patient for evaluation and treatment of disorganized thought and altered mental status. I have met with him for a 30 minute evaluation and reviewed course and records kept by [facility]. Client's main issue is a severely confused mental state. Co-occurring issues are the grief of a girlfriend who a year ago and daily alcohol use. Client has reported that he has had alcohol withdrawal seizures in the past. When the police went into his home, they stated it was "destroyed." The patient himself is an extremely poor historian, with a mini mental status less than 20/30. As a result he was a reliable historian and I could not get a sense of chronicity or time frame. He is unable to participate in any meaningful psychiatric review of systems. He is currently manifesting with symptoms of severe confusion. He was combative in the ER but was easily engaged in conversation and easily redirected. He appears to be confabulating and rationalizing in an attempt to normalize recent bizarre behavior. His neighbor reported in the chart that he has been acting odd for the past three days, talking a lot about calling his girlfriend who had , speaking in different languages, and drinking a lot. They stated they had to encourage him to shower, eat, and drink. PAST MEDICAL HISTORY: MEDICATIONS: Unknown. ALLERGIES: No known allergies. PAST ILLNESSES: History of alcoholism. No other past medical history available. PAST PSYCHIATRIC HISTORY: Client denies, but again is a poor historian. PAST PSYCHOSOCIAL HISTORY: Client states he was born in [place]. 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 He stated he worked for [employer]. DRUG AND ALCOHOL: Client states he drinks occasionally. LETHALITY: Client denied suicidal attempts or suicidal ideations. RELATIONSHIP HISTORY: I could not tell whether he had a that a year ago, a common-law marriage, or a girlfriend. SCIENTOLOGY: None. LEGAL HISTORY: None. VITAL SIGNS: Blood pressure 173/96, pulse 68, respirations 16, afebrile. Physical exam reviewed and essentially normal. CBC: Low WBC. Crit and hemoglobin mildly low. Electrolytes within normal limits. UDS negative. MENTAL STATUS EXAMINATION: Client disheveled, sitting calmly in a chair, with good eye contact. He attempted to engage me in a calm manner. His attitude was cooperative and pleasant. His speech was normal rate and rhythm. Mood was confused. Affect was restricted and flat. Thought process: Client unable to relate a coherent history. He was using confabulation during my interview. Thought content: Significant for appeared to be rationalizing in order to normalize recent bizarre behavior. Denied suicidal ideation or auditory hallucinations. Client was only oriented to person, not place or date. Severe impairment in memory and attention. Severe impairment in judgment and insight. Marked difficulty with impulse control, reality testing, and competence to handle current stressors. IMPRESSION: The patient is a 58-year-old white male, living alone. He reportedly has been a facilities mechanical design engineer and has been grieving the loss of a common-law who a year ago. The neighbor stated that he has been drinking more and has not been taking care of his hygiene or his home. They found him naked and unconscious in their front yard. In the ER he has been confused and disorganized. It is difficult to say whether he is having a depressive reaction with cognitive impairment or whether this is a delirium due to withdrawing from alcohol or another medical process. DIAGNOSIS: Urbanna I: 1. Altered mental status. Rule out delirium. Rule out substance-induced psychosis, alcohol. Rule out major depressive disorder with psychosis due to recent loss. Urbanna II: Deferred. Urbanna III: Encephalopathy. Rule out Wernicke syndrome. Rule out sepsis. Urbanna IV: Unknown. Urbanna V: Current Global Assessment of Functioning equal to 20. PLAN: Recommend client be maintained on the medical floor and medically treated. Recommend workup for potential reversible causes of delirium or dementia. I will follow with you. As client's condition stabilizes, I will be in a better position to assess symptoms of depression and psychosis. No medication changes recommended at this time. I will follow up with the patient over the next several days.
[2016-08-24] MEDS ORDERED: 0.9% Sodium Chloride 250 ML ONE (16:19)
[2016-08-24] MEDS: cefTRIAXone Inj 2,000 MG in Dextrose 5% Minibag Plus 50 ML IV SCH (16:24)
[2016-08-25 00:35] VITALS: BP 164/70; PULSE 59; RESP 16; O2SAT 96
--- NOTE | 2016-08-25 03:41 | NUR ---
Sitter at bedside. Patient confused and agitation escalates quickly, sitter required to redirect patient periodically. Patient up to bathroom with FWW and one person assist this shift, tolerates fair. unable to consistently follow directions, make needs known, and or use the call light. Otherwise denies pain and or discomfort at this time. Care continues.
[2016-08-25 04:30] VITALS: BP 175/95; PULSE 60; RESP 18; O2SAT 97
[2016-08-25 05:47] VITALS: PULSE 61
[2016-08-25 05:50] LABS: BASOPHILS % (AUTO) 0.6 % (0-3); EOSINOPHILS % (AUTO) 3.8 % (0-5); MONOCYTES % (AUTO) 11.4 % (4-12); Mean Corpuscular Hemoglobin 32.3 pg (27.0-35.0); Mean Corpuscular Volume 92.7 fL (81-100); NEUTROPHILS % (AUTO) 47.1 % (40-74); Platelet Count 278 bil/L (150-400)
--- NOTE | 2016-08-25 08:46 | NUR ---
NUTRITION FOLLOW-UP: ASSESS: Pt is a 66 YO male admitted with AMS, ETOH intoxication. Pt has history of alcoholism and is currently on CIWA protocol. Pt continues to be confused, requiring a sitter. ST was able to advance diet to pureed and pt has been tolerating PO well at 100% of all meals. PMHX: Alcoholism. LABS: Reviewed. 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 Thiamine, folic acid, MVI GI: BMx1 08/25 SKIN: No PU per WC WTS: 71.8kg, BMI 24.7kg/m2. Admit weight: 70 kg. DIET: Pureed, thin liquids. PO 100% EST. NEEDS: Kcals: 1750-2100kcal/day (25-30kcal/kg) Pro: 70-85g/day (1.0-1.2g/kg) NUTRITION DIAGNOSIS: 1) Inadequate oral intake related to decreased ability to consume sufficient energy as evidenced by current NPO status - IMPROVING NUTRITION INTERVENTION: 1) Continue current supplements of Ensure at breakfast, Magic Cup at lunch, Gelatein at dinner. MONITOR / EVAL: Diet advance / tolerance, PO intake, wt, gi, labs, POC. Will continue to monitor per moderate nutrition risk guidelines.
[2016-08-25 09:08] VITALS: BP 153/80; PULSE 67; RESP 16; O2SAT 95
[2016-08-25] MEDS: Multivit-Miner-Folic Acid-Iron Tablet PO SCH (10:19)
[2016-08-25] MEDS: Thiamine Inj 100 MG in Dextrose 5% 50 ML IV SCH (10:19)
--- NOTE | 2016-08-25 12:11 | NUR ---
Inpatient Wound Nurse Patient agreeable to nail trimming of R great toe where nail has broken and left sharp, jagged point on lateral aspect. DOOR TO DOOR SELLING AGENT spoke calmly with patient during care and although patient was confused ("I think I made the president do the wrong thing, I sent him a message in my [employer] puzzle") he was cooperative with nail trimming. Jagged nail was trimmed to smooth surface, no further wound care needed at this time.
[2016-08-25 12:35] VITALS: BP 133/80; PULSE 58; RESP 15; O2SAT 94
--- NOTE | 2016-08-25 13:05 | NUR ---
Spoke with Dr. Bowman who agreed that pt is not currently appropriate for skilled Physical Therapy intervention. Please continue to mobilize pt with NSG staff. If pt becomes appropriate for PT, please re-order.
--- NOTE | 2016-08-25 16:05 | NUR ---
Social Work: Attempted Assessment/Multi-Disciplinary Rounds D: EMR reviewed. Pt is on day 6 of hospitalization. Pt discussed in rounds. Pt not medically stable for discharge. stated that he met with pt's neighbors who provided information regarding pt's baseline. Per MD, pt's neighbors have known pt for years and as of a month ago, pt's behavior at hospital is not his baseline. A month ago, pt was alert and oriented. Pt's neighbors state that they transport pt to retrieve ETOH daily and pt drinks about 8+ beers a day. CHARLENE discussed this with and requested CD. Pt's neighbors stated that pt's sister is going to receive surgery in the next couple days and that may be why SW has not been able to reach her. A: TBD P: Follow-up with pt's neighbors - phone number on board per MD - regarding any other possible NOK we can contact. stated we need to reach family rather than pt's neighbors due to their contribution to pt's ETOH consumption. SW to continue to locate NOK. JOSE Valverde
[2016-08-25] MEDS: cefTRIAXone Inj 2,000 MG in Dextrose 5% Minibag Plus 50 ML IV SCH (16:12)
--- NOTE | 2016-08-25 18:58 | NUR ---
MENTATION/ACTIVITY Patient is alert and oriented to person only. Answers some questions appropriately. Denies pain. Tolerating liquids PO and her diet well. Denies nausea. No emesis noted. Denies SOB. Patient has been able to get up to the chair with SBA/1 PA and the FWW. Tolerated activity well. Sherrie alarm is on for safety.
[2016-08-25 19:43] VITALS: BP 136/77; PULSE 64; RESP 16; O2SAT 94
--- NOTE | 2016-08-26 04:41 | NUR ---
Nursing, NOC Patient is drowsy, oriented to self. CIWA-3. Incont of b/b, check/change, turned [id number] thru NOC. Bed alarm on, call light w/in reach.
[2016-08-26 04:56] VITALS: BP 150/83; PULSE 59; RESP 16; O2SAT 94
[2016-08-26] MEDS: Multivit-Miner-Folic Acid-Iron Tablet PO SCH (08:56)
[2016-08-26 09:22] VITALS: BP 143/78; PULSE 62; RESP 15; O2SAT 94
--- NOTE | 2016-08-26 09:25 | NUR ---
Mentation This AM, patient is A&OX1. Able to tell this RN who he is but states he is in [place], stated his zip code and [address] number. Then patient started singing the national anthem. When asked if patient can tell me what the date was today, the patient stated "Well, it's not the 08 of August." but could give no more information than that. CIWA score of 3 due to patient's drowsiness. Patient is pleasant and easily directed. Frequent rounding, stacy alarm in place, assessing patient's confusion and CIWA score.
[2016-08-26] MEDS: Thiamine Inj 100 MG in Dextrose 5% 50 ML IV SCH (09:53)
[2016-08-26] MEDS: cefTRIAXone Inj 2,000 MG in Dextrose 5% Minibag Plus 50 ML IV SCH (16:13)
--- NOTE | 2016-08-26 16:18 | NUR ---
DEB signed by pt's sister Trudy [phone] over the phone. JOSE De Souza
--- NOTE | 2016-08-26 16:19 | NUR ---
Social Work- Multidisciplinary Rounds Pt's mentation continues to be poor. Unknown if this is pt's baseline. T/C Pt's sister trudy. Trudy feels that pt stays very confused. Trudy requests that pt's niece Humaira Colby [phone] be the point of contact for pt. SW unable to see pt today due to high census. SW will continue to follow. JOSE De Souza
--- NOTE | 2016-08-26 17:09 | PCM.PNMED ---
Subjective Date of Service Aug 26, 2016 Subjective No overnight events Exam Vital Signs Vital Sign - Last Date Time Temp Pulse Resp B/P Pulse Ox O2 Delivery O2 Flow Rate FiO2 08/26/16 09:22 36.8 62 15 143/78 94 Room Air 08/23/16 06:44 3.00 Intake and Output 08/25/16 08/25/16 08/26/16 Cumulative From/Thru 15:00 23:00 07:00 08/19/16 11:27 - 08/26/16 06:26 Intake Total 1945 ml 300 ml 05904 ml Output Total 848 ml 2254 ml Balance 1945 ml -548 ml 13196 ml Intake Oral 1745 ml 300 ml 5922 ml IV Total 200 ml 75937 ml Output Urine Total 848 ml 2254 ml # Voids 6 35 # Bowel Movements 0 1 Exam Gen: Alert and oriented 1-2 today. Much more alert. Sitting up in chair without assistance. HEENT: NCAT, PERRLA, EOMI, MMM, sclera anicteric. Neck: Soft, supple, symmetrical, no thyromegaly/JVD/LAD. Resp: CTAB, no R/R/W. CV: RRR, nl S1/S2, no M/R/G, Abd: Soft, (+) BS, no guarding/rebound/organomegaly. Ext: +PP, -edema Skin: Some small excoriations, healing Neuro/Psych: Patient is alert and oriented 1-2 today much more alert and cooperative answer questions. Still tends gentle thinking and inappropriate responses with some repetitive words used still inappropriate responses to questions. Repeat same phrase multiple times. Follow basic commands Lab and Diagnostics Result Diagram: 08/25/1652808/25/1629 Microbiology Name: BOB BECKMAN JR Age/Sex: 66/M Attend Dr: Bertin Meléndez Acct: [id number] Unit: [id number] Status: ADM IN Location: [facility] [place] 1011-1 Re08/19/16 Disch: Specimen: [id number] Collected: 08/19/16 Status: RES Req#: [id number] Received: 08/19/16 Source: RANDOM Sp Desc : ISABEL Villafuerte Dr: Reid Ayoub MD Ordered: URINE CULT Procedure Result Verified Site Microbiology GERMÁN CULT URINE Preliminary 08/20/16-856 PRELIMINARY ID GRAM NEG ISA, PROBABLE E COLI ID AND SENS TO FOLLOW COLONY COUNT/QUANTITY Less than 10,000 CFU/ml Blood cultures are pending and negative to date. CSF was negative. X-Rays, CTs and MRIs PROCEDURE: MRI BRAIN WITHOUT CONTRAST ([id number]) INDICATIONS: AMS TECHNIQUE: Non-contrast axial T1 spin echo, axial T2 fast spin echo, sagittal and axial FLAIR, coronal T2 fast spin echo, axial gradient echo, axial diffusion and ADC through the brain. COMPARISON: None. FINDINGS: Image quality: Excellent. CSF spaces: Ventricles appear symmetric in size and shape. Basal cisterns are patent. No extra-axial fluid collections. Brain: No intracranial bleeds or mass effects. There is cerebral volume loss for age. There are periventricular and deep white matter chronic small vessel ischemic changes. Brainstem appears normal. Diffusion-weighted images show no acute ischemic insults. No chronic ischemic insults. Normal intravascular flow voids are present. Skull and face: Calvarial bone marrow is normal in signal. Orbits are normal. Sinuses: Severe right maxillary sinus mucosal thickening. Minimal left maxillary sinus mucosal thickening. Mastoids clear. 1. Volume loss and small vessel ischemic disease. 2. No acute process. No recent infarct. 3. Maxillary sinus disease. EEG- 08/22/2016 Abnormal EEG due to slowing. No evidence of ongoing subclinical seizures or epileptiform abnormalities. Clinical correlation advised. PROCEDURE: CT BRAIN WITHOUT CONTRAST ([id number]) INDICATIONS: altered mental status TECHNIQUE: Noncontrast 4.5 mm thick angled axial sections acquired from the foramen magnum to the vertex, with coronal reformats. COMPARISON: [facility], CT, BRAIN W/O CONTRAST, 09/28/2008, 23:11. FINDINGS: Image quality: Excellent. CSF spaces: Basal cisterns are patent. No extra-axial fluid collections. The ventricles are symmetric in size and shape. Brain: No intracranial bleeds or masses. There is cerebral volume loss for age , with resultant ventricular and sulcal prominence. There are periventricular and deep white matter chronic small vessel ischemic changes. There is intracranial internal carotid artery atherosclerosis. Skull and face: Calvarium and visualized facial bones appear intact, without suspicious lesions. Sinuses: There is chronic sinus disease involving the right maxillary sinus. There is diffuse thickening of the arredondo and minimal central aeration. IMPRESSION: No acute intracranial abnormality. Atrophic changes present. Chronic left maxillary sinus disease is present. Cardiac Echo Impressions Echocardiogram Report Name: KARUNA, BBO CStudy Da te: 08/20/2016 Height: 67 in Hospital Exam Location: [facility] Weight: 154 lb Gender: Male BSA: 1.8 m2 : 1950 Age: 66 yrs BP: 121/76 mmHg Reason For Study: ENCEPHALOPATHY Ordering Physician: Angel Casanova Performed By: Jeremias Caicedo Referring Physician: Dr. Leon Owen Interpretation Summary 1. Normal left ventricular size, wall thickness and systolic function with an estimated EF of 65 to 70% 2. Normal right ventricular size and systolic function 3. No evidence for valvular pathology Assessment & Plan Pt is a 66 year old male with a hx of alcohol abuse presenting to the ED via EMS due to confusion and decreased level of consciousness. # Encephalopathy, present on admission. Active. Unclear if patient has underlying dementia likely given atrophic atrophy seen on CT of the head. Delirium secondary to UTI also probable. Did not meet sepsis criteria. - Possible Wernicke's encephalopathy. Will give thiamine IV and and multivitamins in a banana bag - CSF was obtained by lumbar puncture and is negative making meningeal encephalitis less likely 08/22- Discussed case briefly with on-call neurologist. Rec MRI of the brain and EEG. -EEG showed slowing which is a nonspecific finding and could be related to dementia or medications. No epileptiform activity. - MRI of the brain did show some volume loss with no acute process. -Have consulted psych as patient likely has undiagnosed dementia. Will call for follow up to reassess now that pt is closer to baseline. #UTI- positive for Escherichia coli, POA, active. less than 10,000. Started on ceftriaxone on 08/20. WBC 16.7->4.7 today. Afebrile. Will transition from IV to by mouth antibiotics closer to discharge, likely seven-day course. #PEPE- resolved. Present on admission. No known history of CKD. Was likely prerenal secondary to dehydration and poor by mouth intake. Has improved with IV fluids. # Alcohol abuse- POA, resolved patient's alcohol level was 0% admission. Unclear if patient is withdrawing from alcohol. - Patient routinely drinks on a regular basis, continue with IV thiamine. - Amount of alcohol consumption is not known by patient's neighbors. patient lives alone. - We will continue CIWA protocol, has had scores < 10. CIWA score for this exam #Elevated BP, POA, active. unknown if hx of HTN. Had multiple elevated blood pressure readings over the last 2 days and increased heart rate with activity. We will start low-dose metoprolol, 0.5 twice a day. # Rash, presence time of admission. Active - Etiology uncertain, but as patient was found naked in his neighbor's yard, it appears to be due to abrasions and some contact dermatitis - We will provide Benadryl and some mild topical cream. Disposition: Social work is assisting to coordinate with patient's family as he will need supervision to take his own medications and take care of himself. Otherwise we will look into assisted living facilities. GI Prophylaxis: Proton Pump Inhibitor VTE Prophylaxis: Sub-Q Enoxaparin VTE Mechanical Devices: Intermittant Pneumatic CD Resuscitation Status: CPR: Attempt Resuscitation Amos oBwman MD Aug 26, 2016 17:09
[2016-08-26 19:30] VITALS: BP 129/76; PULSE 88; RESP 16; O2SAT 95
--- NOTE | 2016-08-26 20:23 | PCM.PNPSY ---
Subjective Date of Service Aug 26, 2016 Subjective Patient greeted this show card writer then began tapping his pudding cup and asked this show card writer what he was doing and then answered, "I'm sending you Lacey code. I need an autopsy. Do I have MS? Is this suicide?" Parted stated the date was May 30, 2016 but was looking at [employer]. His birthday was reported as 1950. The patient reported he began hearing voices approximately 1 year ago, "I thought I heard the voice of God, then suddenly I knew I was God." Sleep: Okay Appetite: Good Suicidal and homicidal ideation: denies Auditory hallucinations: as above Visual hallucinations: denies Other Psychotic Symptoms: Endorses telepathy and attempted to communicate with this show card writer telepathically Current Medications Current Medications Amlodipine Besylate 10 mg DAILY PO Last administered on 08/26/16 08:56; Admin Dose 10 MG; Start 08/25/16 at 08:30 Cephalexin 500 mg ONCE ONCE PO Last administered on 08/26/16 18:20; Admin Dose 500 MG; Start 08/26/16 at 17:05; Stop 08/26/16 at 17:21; Status DC Famotidine 20 mg Q24H PO Last administered on 08/26/16 08:56; Admin Dose 20 MG ; Start 08/26/16 at 08:30 Mental Status Exam Appearance: Unkept, Disheveled Attitude: Cooperative, Guarded Behavior: Other (Lacey code tapping on cup) Affect: Flat Mood: Anxious Thought Process/Associations: Loose Speech Production: Normal Speech Rate: Normal Speech Articulation: Normal Thought Content: Ideas of Reference, Perseveration Danger to Self/Suicidal Ideati: None Danger to Others: None Delusions: Thought Insertion (Endorses), Thought Broadcasting (Endorses), Thought withdrawal (Denies), Paranoid (Endorses) Hallucinations: Auditory (Endorses), Visual (Denies) Consciousness: Alert Orientation: Person Memory: Short Term Memory (Impaired), Jail Memory (Impaired) Estimate Intellectual Function: Average Basis for IQ estimate: Word use/vocabulary Attention/Concentration & Cogn: Impaired Insight: Limited Judgement: Poor Result Diagram: 08/25/16 0529 08/25/16528 Mental Health Plan Patient is 66 year old male with admission due to change in mental status examination. Patient appears to be closer to baseline and is reporting approximately 1 year of worsening gait, memory, and psychosis. Patient also reports significant alcohol history. MRI consistent with vascular neurocognitive disorder. Alcohol may be playing a role in cognitive changes. Patient clearly reports auditory hallucinations and delusions and attempted to communicate with this show card writer telepathically. Patient has enough insight to realize that his mental state is not his normal state. 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 Alcohol Use Disorder AXIS II: Defer AXIS III: See PMH AXIS IV: Unknown AXIS V: GAF 35 Treatments 1. Risks and benefits discussed with patient regarding risperidone including TD , metabolic syndrome, and patient agrees to continue. Will start Risperdal 0.5mg po nightly. 2. Given patient report of heavy alcohol use, will attempt to use oldest blood sample for B12, folate levels. 3. Not appropriate for inpatient psychiatric care at the [facility] ( which is also currently full) but may benefit from Geriatric psychiatric unit. 4. If risperidone effective will switch prn olanzapine to risperidone. 5. Psychiatry will continue to follow until stable or discharged. Lan Bradford MD Aug 26, 2016 20:22
[2016-08-26] MEDS ORDERED: risperiDONE 1 mg Tablet PO SCH (21:00)
--- NOTE | 2016-08-27 04:47 | NUR ---
Mentation Pt continues to have fluctuating level of confusion; able to make needs known, using urinal and call light appropriately, has not tried to exit bed. However, also makes comments and writes information down that is not related to current care and is disconnected from anything else. Complained of back pain but declined offer of medication. Spoke freely about using alcohol for pain control as baseline, is aware of intermittent withdrawl symptoms he has experienced in past; current CIWA score unchanged. Bed alarm remains engaged for safety, hourly rounding ongoing.
[2016-08-27 06:14] VITALS: BP 134/85; PULSE 66; RESP 20; O2SAT 96
[2016-08-27 08:30] LABS: BASOPHILS % (AUTO) 0.6 % (0-3); EOSINOPHILS % (AUTO) 2.8 % (0-5); MONOCYTES % (AUTO) 12.4 % (4-12); Mean Corpuscular Hemoglobin 31.9 pg (27.0-35.0); Mean Corpuscular Volume 92.9 fL (81-100); NEUTROPHILS % (AUTO) 49.8 % (40-74); Platelet Count 339 bil/L (150-400)
[2016-08-27 08:46] LABS: Magnesium 1.9 mg/dL (1.6-2.6); Phosphorus 3.7 mg/dL (2.5-4.9)
[2016-08-27] MEDS: Multivit-Miner-Folic Acid-Iron Tablet PO SCH (10:26)
[2016-08-27 12:26] VITALS: BP 125/77; PULSE 60; RESP 16; O2SAT 97
--- NOTE | 2016-08-27 13:05 | PCM.PNMED ---
Subjective Date of Service Aug 27, 2016 Subjective patient's mental status is markedly improved today. Thoughts are still irrational at times. He is able to hold a full conversation. Is able to provide accurate details regarding his history including who he lives with, how he obtains meals, his day-to-day life. Exam Vital Signs Vital Sign - Last Date Time Temp Pulse Resp B/P Pulse Ox O2 Delivery O2 Flow Rate FiO2 08/27/16 12:26 36.7 60 16 125/77 97 Room Air 08/23/16 06:44 3.00 Intake and Output 08/26/16 08/26/16 08/27/16 Cumulative From/Thru 15:00 23:00 07:00 08/19/16 11:27 - 08/27/16 06:14 Intake Total 62 ml 2310 ml 544 ml 78231 ml Output Total 1100 ml 3354 ml Balance 62 ml 2310 ml -556 ml 23267 ml Intake Oral 2310 ml 450 ml 8682 ml IV Total 62 ml 94 ml 37540 ml Output Urine Total 1100 ml 3354 ml # Voids 6 4 45 # Bowel Movements 1 0 2 Exam Gen: Alert and oriented 2 today. Pt is alert and answering questions fully. HEENT: NCAT, PERRLA, EOMI, MMM, sclera anicteric. Neck: Soft, supple, symmetrical, no thyromegaly/JVD/LAD. Resp: CTAB, no R/R/W. CV: RRR, nl S1/S2, no M/R/G, Abd: Soft, (+) BS, no guarding/rebound/organomegaly. Ext: +PP, -edema Skin: Some small excoriations, healing Neuro/Psych: Does exhibit some irrational thoughts and tangential thinking suggestive of psychosis. IVs and Medications Medications Reviewed: Medications were reviewed in detail Lab and Diagnostics Result Diagram: 08/27/1680908/27/16809 Microbiology Name: JAQUAN BECKMAN JRPH C Age/Sex: 66/M Attend Dr: Bertin Meléndez Acct: [id number] Unit: [id number] Status: ADM IN Location: [facility] [place] 1011-1 Re08/19/16 Disch: Specimen: [id number] Collected: 08/19/16 Status: RES Req#: [id number] Received: 08/19/16 Source: RANDOM Sp Desc : PP Subm Dr: Reid Ayoub MD Ordered: URINE CULT Procedure Result Verified Site Microbiology GERMÁN CULT URINE Preliminary 08/20/16 PRELIMINARY ID GRAM NEG ISA, PROBABLE E COLI ID AND SENS TO FOLLOW COLONY COUNT/QUANTITY Less than 10,000 CFU/ml Blood cultures are pending and negative to date. CSF was negative. X-Rays, CTs and MRIs PROCEDURE: MRI BRAIN WITHOUT CONTRAST ([id number]) INDICATIONS: AMS TECHNIQUE: Non-contrast axial T1 spin echo, axial T2 fast spin echo, sagittal and axial FLAIR, coronal T2 fast spin echo, axial gradient echo, axial diffusion and ADC through the brain. COMPARISON: None. FINDINGS: Image quality: Excellent. CSF spaces: Ventricles appear symmetric in size and shape. Basal cisterns are patent. No extra-axial fluid collections. Brain: No intracranial bleeds or mass effects. There is cerebral volume loss for age. There are periventricular and deep white matter chronic small vessel ischemic changes. Brainstem appears normal. Diffusion-weighted images show no acute ischemic insults. No chronic ischemic insults. Normal intravascular flow voids are present. Skull and face: Calvarial bone marrow is normal in signal. Orbits are normal. Sinuses: Severe right maxillary sinus mucosal thickening. Minimal left maxillary sinus mucosal thickening. Mastoids clear. 1. Volume loss and small vessel ischemic disease. 2. No acute process. No recent infarct. 3. Maxillary sinus disease. EEG- 08/22/2016 Abnormal EEG due to slowing. No evidence of ongoing subclinical seizures or epileptiform abnormalities. Clinical correlation advised. PROCEDURE: CT BRAIN WITHOUT CONTRAST ([id number]) INDICATIONS: altered mental status TECHNIQUE: Noncontrast 4.5 mm thick angled axial sections acquired from the foramen magnum to the vertex, with coronal reformats. COMPARISON: [facility], CT, BRAIN W/O CONTRAST, 09/28/2008, 23:11. FINDINGS: Image quality: Excellent. CSF spaces: Basal cisterns are patent. No extra-axial fluid collections. The ventricles are symmetric in size and shape. Brain: No intracranial bleeds or masses. There is cerebral volume loss for age , with resultant ventricular and sulcal prominence. There are periventricular and deep white matter chronic small vessel ischemic changes. There is intracranial internal carotid artery atherosclerosis. Skull and face: Calvarium and visualized facial bones appear intact, without suspicious lesions. Sinuses: There is chronic sinus disease involving the right maxillary sinus. There is diffuse thickening of the arredondo and minimal central aeration. IMPRESSION: No acute intracranial abnormality. Atrophic changes present. Chronic left maxillary sinus disease is present. Cardiac Echo Impressions Echocardiogram Report Name: BOB BECKMAN CStudmacey Da te: 08/20/2016 Height: 67 in Hospital Exam Location: [facility] Weight: 154 lb Gender: Male BSA: 1.8 m2 : 1950 Age: 66 yrs BP: 121/76 mmHg Reason For Study: ENCEPHALOPATHY Ordering Physician: Angel Casanova Performed By: Jeremias Caicedo Referring Physician: Dr. Leon Owen Interpretation Summary 1. Normal left ventricular size, wall thickness and systolic function with an estimated EF of 65 to 70% 2. Normal right ventricular size and systolic function 3. No evidence for valvular pathology Assessment & Plan Pt is a 66 year old male with a hx of alcohol abuse presenting to the ED via EMS due to confusion and decreased level of consciousness likely secondary to alcohol withdrawal. # Encephalopathy, present on admission. Active. Unclear if patient has underlying dementia likely given atrophic atrophy seen on CT of the head. Delirium secondary to UTI and Alcohol WD. Did not meet sepsis criteria. - Possible Wernicke's encephalopathy. Will give thiamine IV and and multivitamins in a banana bag - CSF was obtained by lumbar puncture and is negative making meningeal encephalitis less likely 08/22- Discussed case briefly with on-call neurologist. Rec MRI of the brain and EEG. -EEG showed slowing which is a nonspecific finding and could be related to dementia or medications. No epileptiform activity. - MRI of the brain did show some volume loss with no acute process. -Have consulted psych as patient likely has undiagnosed dementia. Will call for follow up to reassess now that pt is closer to baseline. - Psychiatry saw the patient and feel that he has a neurocognitive disorder, likely vascular type. And a psychotic disorder. Started risperidone. Deemed non-suicidal, unsafe to go home with appropriate care. #UTI- positive for Escherichia coli, POA, active. less than 10,000. Started on ceftriaxone on 08/20. WBC 16.7->4.7 today. Afebrile. Will transition from IV to by mouth antibiotics closer to discharge, likely seven-day course. Completed course of antibiotics. Can d/c. #PEPE- resolved. Present on admission. No known history of CKD. Was likely prerenal secondary to dehydration and poor by mouth intake. Has improved with IV fluids. # Alcohol abuse- POA, resolved patient's alcohol level was 0% admission. Unclear if patient is withdrawing from alcohol. - Patient routinely drinks on a regular basis, continue with IV thiamine. - Amount of alcohol consumption is not known by patient's neighbors. patient lives alone. - We will continue CIWA protocol, has had scores < 10. CIWA score for this exam #Elevated BP, POA, active. unknown if hx of HTN. Had multiple elevated blood pressure readings over the last 2 days and increased heart rate with activity. We will start low-dose metoprolol, 0.5 twice a day. # Rash, presence time of admission. Active - Etiology uncertain, but as patient was found naked in his neighbor's yard, it appears to be due to abrasions and some contact dermatitis - We will provide Benadryl and some mild topical cream. Disposition: Psychiatry saw the patient and feel that he has a neurocognitive disorder, likely vascular type. And a psychotic disorder. Started risperidone. Deemed non-suicidal, unsafe to go home with appropriate. Have talked with tenant that lives on property with patient and provides assistance. She is willing to take patient home and help arrange PCP and Mental Health follow up. She will keep alcohol away from patient and assist in his recovery. - Crisis prevention contact will be provided in case patient has suicidal or homicidal thoughts. - Patient will continue on Risperidone. - Will provide resources for Crisis Prevention, finding new PCP, and Mental Health Clinic. - Completed course of antibiotics. Can stop. GI Prophylaxis: Proton Pump Inhibitor VTE Prophylaxis: Sub-Q Enoxaparin VTE Mechanical Devices: Intermittant Pneumatic CD Resuscitation Status: CPR: Attempt Resuscitation Amos Bowman MD Aug 27, 2016 13:05
--- NOTE | 2016-08-27 13:08 | PCM.DIMED ---
Discharge Instructions Date of Service Aug 27, 2016 Dates of Hospitalization Aug 19, 2016 at 13:45 Discharge Diagnosis Discharge Diagnosis # Encephalopathy, present on admission. Resolved. #UTI- positive for Escherichia coli, POA, resolved. #PEPE- resolved. Present on admission. # Alcohol abuse- POA, active. # Alcohol Withdrawal, resolved. #HTN, chroninc. Medication Instructions Additional med instructions - Continue on Risperidone daily. - Completed course of antibiotics. Can stop. Diet Discharge Diet: No restrictions Call your provider Call your provider for: Fever or Chills Patient Instructions Patient Instructions - Avoid alcohol further alcohol as we discussed. - Crisis prevention contact will be provided in case patient has suicidal or homicidal thoughts. - Use resouces provided to arrange PCP and PCP and Mental Health follow up. Our Engine Assembler will be in contact this week to Anuradha to assist. Amos Bowman MD Aug 27, 2016 13:08
[2016-08-27] MEDS ORDERED: PREN1TAB25 PO (13:11)
[2016-08-27] MEDS ORDERED: AMLO5TAB2 PO (13:11)
[2016-08-27] MEDS ORDERED: METO25TA6 PO (13:11)
[2016-08-27] MEDS ORDERED: RISP1TAB90 PO (13:11)
[2016-08-27] MEDS ORDERED: FOLI1TAB18 PO (13:11)
[2016-08-27 14:28] VITALS: BP 115/68; PULSE 65; RESP 16; O2SAT 96
--- NOTE | 2016-08-27 15:15 | NUR ---
Social Work- Initial Assessment/Discharge/Multidisciplinary Rounds/ CD Assessment Data: See Initial Assessment and AD Interventions for additional information. Pt is a 66 year old male admitted for altered mental status per H&P. Pt's insurance is [facility]. Pt's PCP is Leon Owen but this is a disconnected number. Pt is on day 8 of hospitalization. This is the first day that pt is appropriate for a full assessment. Pt discussed in rounds-- psych will see pt today. Psych recommending outpt follow up. Per MD, Psych adjusted pt's medications. SW met with pt at bedside regarding discharge plan. Pt is alert and oriented x3. Pt's capacity for self-care assessed. Pt is able to make needs known and engage in short conversations. Pt's thought process was not always linear and pt often began stories that were completely unrelated to the questions asked. Pt was agreeable to conversation and pleasant throughout assessment. Pt resides in [place] alone with his friend Daphne [phone] who lives on his property. Pt reports that Daphne makes meals for him and checks in on him. Per chart review, Daphne also provides pt with his alcohol. Pt ambulates independently at baseline, no DME. Pt has a cane and walker at home for use. Pt is able to drive but he does not have a car that he is able to use currently. Pt has no history with HH or SNF that he can recall. Pt has no completed DPOA paperwork but pt states that he would want his niece Humaira to be decision maker for him if necessary. SW discussed pt's mental health at bedside. Pt is agreeable to follow up with MH providers and taking his medications. Outpt MH resources and MH Crises Line were placed in pt's discharge folder. CHARLENE attempted to complete etoh assessment with pt. Pt was agreeable to speaking about his etoh use but was not able to hold the conversation and began talking at length about his time enlisting in the [employer]. Pt states that he has had long periods of sobriety but was unable to identify any. has spoken with Daphne regarding providing pt with etoh. Daphne is agreeable that she will no longer be providing pt with etoh. Pt is aware of this and stated recognition that etoh is harmful to himself. In a brief moment of insight pt states that he drinks because he is sad and can't sleep. SW validated this and encouraged him to seek help with substance use and mental health to address some of these feelings. Pt denied current SI or HI. Pt was not able to complete the CD assessment in full. Pt's thoughts were not linear enough to complete this. Outpt CD resources and CD Crises Line provided to pt in his discharge folder. CHARLENE explained both MH and CD resources to pt at bedside as well. Rethinking Drinking booklet provided to pt in his D/C folder. CHARLENE also wrote the contact information of 3 PCP offices in the discharge folder. Pt has no PCP at this time and will require PCP follow up. No PCP appointment can be scheduled today since it is Sunday. Pt requested that FLE[employer] SALESPERSON contact his family regarding his discharge from the hospital. has spoken with Daphne regarding PCP follow up, MH follow up, CD follow up, and no more etoh. Dpahne has informed MD that she is working on cleaning up patient's house before he returns home. RN states that Daphne will come to pick pt up raymon. T/C to Humaira, pt's niece, regarding discharge. Left message for Humaiar. T/C to Truyd, pt's sister, regarding discharge. Trudy states that Humaira and her will be visiting pt in 3 days to assist pt and follow up with recommendations. Trudy and Daphne are in regular communication as well. Pt to discharge home with Daphne to transport via POV. No additional SW needs identified. Assessment: Pt for whom outpt MH and CD resources are provided. Plan: Pt to discharge home with Daphne to transport via POV. No additional SW needs identified. MH, CD, and PCP resources provided for pt and Daphne in discharge folder. No additional needs identified. JOSE De Souza Addendum: 08/27/16 at 1534 by VICENTE CHU Amended: Links added.
--- NOTE | 2016-08-27 16:23 | NUR ---
Conversation With Tenant Pt's tenant called today after hearing from the MD Red Team that pt would be discharged today. Anuradha stated, "I was there yesterday, I don't think Casey is ready to go home, I haven't finished cleaning up the mess in the house he made before he went into the hospital and the kitchen sink is still plugged." Message relayed onto Red Team Hospitalist and Studio Hand to which Red Team Hospitalist was going to call Anuradha and speak with her. Per Studio Hand, pt would be charged for staying longer and insurance will not pay.
--- NOTE | 2016-08-27 21:02 | NUR ---
Discharge Pt discharged to home with Anuradha valverde) at 2004. Pt given discharge instructions, scripts, medication care notes and crisis prevention contacts/resources and expressed understanding of each. Anuradha present for discussion as she will be helping the patient get meds and set up appointments. Pt left with all belongings.
--- NOTE | 2016-08-27 22:33 | PCM.PNPSY ---
Subjective Date of Service Aug 27, 2016 Subjective Patient reported to have improved behavior overnight. Today denies anxiety or depression and reports the date as August 27, 2016. Patient still endorsing telepathy. While he endorses having believed he was God he currently denies same. He denies side effects. No coghweeling or dystonia on exam. Sleep: Okay Appetite: Good Suicidal and homicidal ideation: denies Auditory hallucinations: as above Visual hallucinations: denies Other Psychotic Symptoms: Endorses telepathy Anxiety/Depression: denies Current Medications Current Medications Cephalexin 500 mg ONCE ONCE PO Last administered on 08/26/16 18:20; Admin Dose 500 MG; Start 08/26/16 at 17:05; Stop 08/26/16 at 17:21; Status DC Famotidine 20 mg Q24H PO Last administered on 08/27/16 10:29; Admin Dose 20 MG ; Start 08/26/16 at 08:30 Risperidone 0.5 mg HS PO Last administered on 08/26/16 21:48; Admin Dose 0.5 MG ; Start 08/26/16 at 21:00 Mental Status Exam Vital Signs Vital Signs Date Time Temp Pulse Resp B/P Pulse Ox O2 Delivery O2 Flow Rate FiO2 08/27/16 14:28 36.5 65 16 115/68 96 Room Air Appearance: Unkept Attitude: Pleasant, Cooperative Behavior: No unusual behavior Affect: Restricted Mood: Euthymic Thought Process/Associations: Goal Directed Speech Production: Normal Speech Rate: Normal Speech Articulation: Normal Thought Content: Perseveration, Other (telepathy) Danger to Self/Suicidal Ideati: None Danger to Others: None Delusions: Paranoid (Endorses) Hallucinations: Auditory (Denies), Visual (Denies) Consciousness: Alert Orientation: Person Memory: Grossly Intact, Short Term Memory (Impaired), [place]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 Patient appears to be closer to baseline and is reporting approximately 1 year of worsening gait, memory, and psychosis. Patient also reports significant alcohol history. MRI consistent with vascular neurocognitive disorder. Alcohol may be playing a role in cognitive changes. Patient clearly reports auditory hallucinations and delusions and attempted to communicate with this jingle writer telepathically. Patient has enough insight to realize that his mental state is not his normal state. Patient reports improved mood and is more oriented today following risperidone. No side effects noted. Still with cognitive impairment but improved. Patient will likely need assistance in the community, possibly from tenants who are close to patient. B12/folate levels taken from recent draw and are WNL. 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 Alcohol Use Disorder AXIS II: Defer AXIS III: See PMH AXIS IV: Unknown AXIS V: GAF 35 Treatments 1. Risks and benefits discussed with patient regarding risperidone including TD , metabolic syndrome, and patient agrees to continue. Will continue Risperdal 0.5mg po nightly. 2. Unclear effect of alcohol use on memory/cognition, but denies suicidal ideation. 3. Not appropriate for inpatient psychiatric care at the [facility] ( which is also currently full) but may benefit from Geriatric psychiatric unit although patient declining at this time. 4. Will switch PRN olanzapine to risperidone. 5. If patient not to be placed in facility but returned home, would recommend assistance in the home perhaps giving crisis line information to neighbors/ tenants. 6. Psychiatry will continue to follow until stable or discharged. Lan Bradford MD Aug 27, 2016 22:33
[2016-08-27] MEDS ORDERED: risperiDONE 1 mg Tablet PO PRN (22:35)
--- NOTE | 2016-08-28 11:09 | PCM.DC.MED ---
Discharge Summary Date of Service Aug 28, 2016 Dates of Hospitalization Date of Hospital Admission Aug 19, 2016 at 13:45 Date of Discharge: Aug 27, 2016 Providers: Admitting Physician: Bertin Meléndez MD Primary Care Physician: Leon Owen MD Attending Physician: Luciana Bowman MD Diagnosis at Time of Discharge Diagnosis at Time of Discharge # Encephalopathy, present on admission. Resolved. #UTI- positive for Escherichia coli, POA, resolved. #PEPE- resolved. Present on admission. # Alcohol abuse- POA, active. # Alcohol Withdrawal, resolved. #HTN, chroninc. Procedures XRay, CTs & MRIs PROCEDURE: MRI BRAIN WITHOUT CONTRAST ([id number]) INDICATIONS: AMS TECHNIQUE: Non-contrast axial T1 spin echo, axial T2 fast spin echo, sagittal and axial FLAIR, coronal T2 fast spin echo, axial gradient echo, axial diffusion and ADC through the brain. COMPARISON: None. FINDINGS: Image quality: Excellent. CSF spaces: Ventricles appear symmetric in size and shape. Basal cisterns are patent. No extra-axial fluid collections. Brain: No intracranial bleeds or mass effects. There is cerebral volume loss for age. There are periventricular and deep white matter chronic small vessel ischemic changes. Brainstem appears normal. Diffusion-weighted images show no acute ischemic insults. No chronic ischemic insults. Normal intravascular flow voids are present. Skull and face: Calvarial bone marrow is normal in signal. Orbits are normal. Sinuses: Severe right maxillary sinus mucosal thickening. Minimal left maxillary sinus mucosal thickening. Mastoids clear. 1. Volume loss and small vessel ischemic disease. 2. No acute process. No recent infarct. 3. Maxillary sinus disease. EEG- 08/22/2016 Abnormal EEG due to slowing. No evidence of ongoing subclinical seizures or epileptiform abnormalities. Clinical correlation advised. PROCEDURE: CT BRAIN WITHOUT CONTRAST ([id number]) INDICATIONS: altered mental status TECHNIQUE: Noncontrast 4.5 mm thick angled axial sections acquired from the foramen magnum to the vertex, with coronal reformats. COMPARISON: [facility], CT, BRAIN W/O CONTRAST, 09/28/2008, 23:11. FINDINGS: Image quality: Excellent. CSF spaces: Basal cisterns are patent. No extra-axial fluid collections. The ventricles are symmetric in size and shape. Brain: No intracranial bleeds or masses. There is cerebral volume loss for age , with resultant ventricular and sulcal prominence. There are periventricular and deep white matter chronic small vessel ischemic changes. There is intracranial internal carotid artery atherosclerosis. Skull and face: Calvarium and visualized facial bones appear intact, without suspicious lesions. Sinuses: There is chronic sinus disease involving the right maxillary sinus. There is diffuse thickening of the arredondo and minimal central aeration. IMPRESSION: No acute intracranial abnormality. Atrophic changes present. Chronic left maxillary sinus disease is present. Cardiac Echo Impression Echocardiogram Report Name: BOB BECKMAN CStmaggy Da te: 08/20/2016 Height: 67 in Hospital Exam Location: [facility] Weight: 154 lb Gender: Male BSA: 1.8 m2 : 1950 Age: 66 yrs BP: 121/76 mmHg Reason For Study: ENCEPHALOPATHY Ordering Physician: Angel Casanova Performed By: Jeremias Caicedo Referring Physician: Dr. Leon Owen Interpretation Summary 1. Normal left ventricular size, wall thickness and systolic function with an estimated EF of 65 to 70% 2. Normal right ventricular size and systolic function 3. No evidence for valvular pathology Brief History This patient is unresponsive the history was obtained from the chart and according to Dr. Reid Ayoub the "Pt is a 66 year old male with a hx of alcohol abuse presenting to the ED via EMS due to confusion and decreased level of consciousness. He is not oriented to place or date. He was found unconscious in his neighbor's yard and was acting strange the last couple days. His neighbor reports that he has been speaking gibberish for the past 3 days, and was acting things out in his front yard. He is normally totally oriented and neurologically intact at baseline. She has been unable to understand what he has been saying for the past 3 days, and has never seen his like this before. She reports that he drinks a lot of alcohol but she is not sure how much. The pt 's 1 year ago and now lives alone. His neighbor is unsure what his medications are.". The patient portably began banging his chest in the emergency room and was very confused disoriented to place to time. Patient was given ketamine due to agitation in route to the hospital by EMS workers. Once ketamine wore off he was at times speaking and normal coherent sediment sentences at times believing he was Zach and beating his chest. He was given Zyprexa and Ativan. His white blood cell count was found to be elevated his urine analysis suggested that he had a urinary tract infection. A lumbar puncture was performed and the patient was given IV Rocephin a banana bag was ordered and the patient was admitted to the hospitalist service. For the Zyprexa and the Ativan he was extremely sleepy and unresponsive. Hospital Course Pt is a 66 year old male with a hx of alcohol abuse presenting to the ED via EMS due to confusion and decreased level of consciousness likely secondary to alcohol withdrawal. # Encephalopathy, present on admission. Active. Unclear if patient has underlying dementia likely given atrophic atrophy seen on CT of the head. Delirium secondary to UTI and Alcohol WD. Did not meet sepsis criteria. - Possible Wernicke's encephalopathy. Will give thiamine IV and and multivitamins in a banana bag - CSF was obtained by lumbar puncture and is negative making meningeal encephalitis less likely 08/22- Discussed case briefly with on-call neurologist. Rec MRI of the brain and EEG. -EEG showed slowing which is a nonspecific finding and could be related to dementia or medications. No epileptiform activity. - MRI of the brain did show some volume loss with no acute process. -Have consulted psych as patient likely has undiagnosed dementia. Will call for follow up to reassess now that pt is closer to baseline. - Psychiatry saw the patient and feel that he has a neurocognitive disorder, likely vascular type. And a psychotic disorder. Started risperidone. Deemed non-suicidal, unsafe to go home with appropriate care. #UTI- positive for Escherichia coli, POA, active. less than 10,000. Started on ceftriaxone on 08/20. WBC 16.7->4.7 today. Afebrile. Will transition from IV to by mouth antibiotics closer to discharge, likely seven-day course. Completed course of antibiotics. Can d/c. #PEPE- resolved. Present on admission. No known history of CKD. Was likely prerenal secondary to dehydration and poor by mouth intake. Has improved with IV fluids. # Alcohol abuse- POA, resolved patient's alcohol level was 0% admission. Unclear if patient is withdrawing from alcohol. - Patient routinely drinks on a regular basis, continue with IV thiamine. - Amount of alcohol consumption is not known by patient's neighbors. patient lives alone. - We will continue CIWA protocol, has had scores < 10. CIWA score for this exam #Elevated BP, POA, active. unknown if hx of HTN. Had multiple elevated blood pressure readings over the last 2 days and increased heart rate with activity. We will start low-dose metoprolol, 0.5 twice a day. # Rash, presence time of admission. Active - Etiology uncertain, but as patient was found naked in his neighbor's yard, it appears to be due to abrasions and some contact dermatitis - We will provide Benadryl and some mild topical cream. Disposition: Psychiatry saw the patient and feel that he has a neurocognitive disorder, likely vascular type. And a psychotic disorder. Started risperidone. Deemed non-suicidal, unsafe to go home with appropriate. Have talked with tenant that lives on property with patient and provides assistance. She is willing to take patient home and help arrange PCP and Mental Health follow up. She will keep alcohol away from patient and assist in his recovery. - Crisis prevention contact will be provided in case patient has suicidal or homicidal thoughts. - Patient will continue on Risperidone. - Will provide resources for Crisis Prevention, finding new PCP, and Mental Health Clinic. - Completed course of antibiotics. Can stop. Exam Vital Signs (Last) Date Time Temp Pulse Resp B/P Pulse Ox O2 Delivery O2 Flow Rate FiO2 08/27/16 14:28 36.5 65 16 115/68 96 Room Air 08/23/16 06:44 3.00 Test 08/19/16 11:30 08/19/16 12:45 08/19/16 15:15 08/19/16 20:42 Thyroid Stimulating Hormone (TSH) 2.180uIU/mL (0.450-4.500) Salicylates Level < 3.0ug/mL (30-250) Alcohols < 10mg/dL (0-10) Urine Color Yellow (YELLOW) Urine Appearance Cloudy (CLEAR,HAZY) Urine pH 5.5 (5.0-8.0) Urine Specific [place] 1.025 (1.003-1.035) Urine Protein Tracemg/dL (NEG,TRACE) Urine Glucose (UA) Negativemg/dL (NEGATIVE) Urine Ketones 80mg/dL (NEGATIVE) Urine Occult Blood Moderate (NEGATIVE) Urine Nitrite Negative (NEGATIVE) Urine Bilirubin Negative (NEGATIVE) Urine Urobilinogen Normalmg/dL (NORMAL) Urine Leukocyte Esterase Small (NEGATIVE) Urine RBC 3-10/hpf (0-2) Urine WBC 6-10/hpf (0-5) Urine Epithelial Cells Few/hpf (NONE-MOD) Urine Crystals Amorphous urates (NONE Urine Bacteria Few/hpf (NONE-FEW) Urine Hyaline Casts None/lpf (NONE) Urine Granular Casts None seen (NONE SEEN) Urine Waxy Casts None seen (NONE SEEN) Urine Red Blood Cell Casts None seen (NONE SEEN) Urine White Blood Cell Casts None seen (NONE SEEN) Urine Mucus None seen (None Seen) Urine Trichomonas None seen (NONE SEEN) Urine Yeast None (NONE SEEN) Urinalysis Comment None Urine Culture Reflexed Indicated CSF Appearance Clear (CLEAR) CSF Color Colorless (COLORLESS) CSF WBC 0/mm3 (0-5) CSF RBC 38/mm3 CSF Mononuclear WBCs % CSF Polynuclear WBCs % CSF Other Cells CSF Glucose 74mg/dL (45-90) CSF Total Protein 33mg/dL (15-45) Ammonia < 17ug/dL (18-53) Lipase 30U/L (13-60) Test 08/20/16 06:02 08/25/16 05:29 08/27/16 08:10 Lactic Acid Level 0.8mmol/L (0.4-2.0) Prealbumin 15mg/dL (20-40) Vitamin B12 Level 1240pg/mL (211-946) Folate 18.5ng/mL (>3.0) White Blood Count 6.4th/mm3 (3.8-10.1) Red Blood Count 4.51mil/mm3 (4.40-5.80) Hemoglobin 14.4g/dL (13.8-17.2) Hematocrit 41.9% (41.0-50.0) Mean Corpuscular Volume 92.9fL (81-100) Mean Corpuscular Hemoglobin 31.9pg (27.0-35.0) Mean Corpuscular Hemoglobin Concent 34.4% (32.0-37.0) Red Cell Distribution Width 12.8% (12.3-15.4) Platelet Count 339bil/L (150-400) Neutrophils (%) (Auto) 49.8% (40-74) Lymphocytes (%) (Auto) 34.2% (14-46) Monocytes (%) (Auto) 12.4% (4-12) Eosinophils (%) (Auto) 2.8% (0-5) Basophils (%) (Auto) 0.6% (0-3) Sodium Level 138mEq/L (134-144) Potassium Level 4.3mEq/L (3.5-5.2) Chloride Level 102mEq/L (97-108) Carbon Dioxide Level 24mmol/L (18-29) Blood Urea Nitrogen 13mg/dL (8-27) Creatinine 0.60mg/dL (0.76-1.27) Estimat Glomerular Filtration Rate 142mL/min (>59) Glucose Level 116mg/dL (60-99) Calcium Level 9.3mg/dL (8.5-10.1) Phosphorus Level 3.7mg/dL (2.5-4.9) Magnesium Level 1.9mg/dL (1.6-2.6) Total Bilirubin 0.3mg/dL (0.0-1.2) Aspartate Amino Transf (AST/SGOT) 22U/L (0-50) Alanine Aminotransferase (ALT/SGPT) 33U/L (0-44) Alkaline Phosphatase 56U/L (25-160) Total Protein 6.4g/dL (6.4-8.4) Albumin 3.3g/dL (3.4-5.0) Microbiology Results Name: BOB BECKMAN JR Age/Sex: 66/M Attend Dr: Bertin Meléndez Acct: [id number] Unit: [id number] Status: ADM IN [place] [facility] [place] [facility]1-1 Re08/19/16 Disch: Specimen: [id number] Collected: 08/19/16 Status: HATTIE Alonzo#: [id number] Received: 08/19/16 Source: RANDOM Sp Desc : PP Subm Dr: Reid Ayoub MD Ordered: URINE CULT Procedure Result Verified Site Microbiology GERMÁN CULT URINE Preliminary 08/20/16 PRELIMINARY ID GRAM NEG ISA, PROBABLE E COLI ID AND SENS TO FOLLOW COLONY COUNT/QUANTITY Less than 10,000 CFU/ml Blood cultures are pending and negative to date. CSF was negative. Discharge Medications Discharge Medications Amlodipine (Amlodipine) 5 Mg Tablet 10 MG PO DAILY Prescribed by: LUCIANA BOWMAN MD Folic Acid (Folic Acid) 1 Mg Tablet 1 MG PO DAILY Prescribed by: LUCIANA BOWMAN MD Metoprolol Tartrate (Metoprolol Tartrate) 25 Mg Tablet 12.5 MG PO BID Prescribed by: LUCIANA BOWMAN MD Vit#96/Ferrous Fum/FA ( Tablet) 1 Each Tablet 1 TABLET PO DAILY Prescribed by: LUCIANA BOWMAN MD Risperidone (Risperdal) 1 Mg Tablet 0.5 MG PO HS Prescribed by: LUCIANA BOWMAN MD Additional med instructions - Continue on Risperidone daily. - Completed course of antibiotics. Can stop. Followup Plan Disposition: Home. Discharge Diet: No restrictions Patient Instructions - Avoid alcohol further alcohol as we discussed. - Crisis prevention contact will be provided in case patient has suicidal or homicidal thoughts. - Use resouces provided to arrange PCP and PCP and Mental Health follow up. Our Yarder Boss will be in contact this week to Anuradha to assist. Luciana Bowman MD Aug 28, 2016 11:09
== END 2016-08-27 20:07 | disposition home or self-care (01) | DRG 71 ==
LOC: EDBD 11:16 → EDUNIT# 11:16 → SED 11:16 → OSC 13:45
PROVIDERS: ADMIT Internal Medicine Infectious Disease; ATTEND Internal Medicine Infectious Disease
PROC: 009U3ZX Drainage of Spinal Canal, Percutaneous Approach, Diagnostic (ICD-10-PCS; principal; 2016-08-19)
DX: G93.40 Encephalopathy, unspecified (principal); N17.9 Acute kidney failure, unspecified; N39.0 Urinary tract infection, site not specified; F10.239 Alcohol dependence with withdrawal, unspecified; B96.20 Unspecified Escherichia coli [E. coli] as the cause of diseases classified elsewhere; R21 Rash and other nonspecific skin eruption